=== PATIENT | male | born 1965 ===

== ENCOUNTER 2017-11-16 11:05 | Observation (INO) | payer MEDICAID ==
--- NOTE | 2017-11-16 11:41 | ED PDOC ---
Arrival/HPI - General Chief Complaint: GI Problem Time Seen by Provider: 11/16/17 11:24 Historian: Patient - History of Present Illness Narrative History of Present Illness (Text): you were treated in the ED today for history of obesity, hypertension, cholesterol, peptic ulcer disease, gallbladder surgery, umbilical surgery and now sent by Dr. Christianson due to your having intermittent bleeding per rectum for about 2 weeks but otherwise without any nausea/vomiting/headache/dizziness/ difficulty breathing/chest pain/abdomen pain/numbness/tingling/loss of limb function/pain with urination. no aspirin use or blood thinnking use. 11/16/17 11:38 Time/Duration: Other (2 weeks) Symptom Onset: Gradual Symptom Course: Intermittent Quality: Other (no pain) Activities at Onset: Rest Context: Sitting Past Medical History - Provider Review Nursing Documentation Reviewed: Yes - Travel History Have you recently traveled outside [place] w/in the past 3 mons?: No - Infectious Disease Hx of Infectious Diseases: None - Tetanus Immunization Tetanus Immunization: Unknown - Cardiac Hx Cardiac Disorders: Yes Hx Hypertension: Yes Hx Pacemaker: No - Pulmonary Hx Respiratory Disorders: No - Neurological Hx Neurological Disorder: No Hx Paralysis: No - HEENT Hx HEENT Disorder: No - Renal Hx Renal Disorder: No - Endocrine/Metabolic Hx Endocrine Disorders: No - Hematological/Oncological Hx Blood Disorders: Yes Hx Anemia: Yes (With blood transfusion) - Integumentary Hx Dermatological Disorder: No - Musculoskeletal/Rheumatological Hx Musculoskeletal Disorders: Yes Hx Arthritis: Yes Other/Comment: R KNEE SX - Gastrointestinal Hx Gastrointestinal Disorders: Yes Hx Gall Bladder Disease: Yes Hx Gastrointestinal Ulcer: Yes - Genitourinary/Gynecological Hx Genitourinary Disorders: No - Psychiatric Hx Psychophysiologic Disorder: No Hx Emotional Abuse: No Hx Physical Abuse: No Hx Substance Use: No - Surgical History Hx Cholecystectomy: Yes Hx Orthopedic Surgery: Yes (R KNEE) Other/Comment: COLONOSCOPY, ENDOSCOPY - Anesthesia Hx Anesthesia: Yes Hx Anesthesia Reactions: No Hx Malignant Hyperthermia: No - Suicidal Assessment Feels Threatened In Home Enviroment: No Family/Social History - Physician Review Nursing Documentation Reviewed: Yes Family/Social History: No Known Family HX Smoking Status: Former Smoker Hx Alcohol Use: No Frequency of alcohol use: Socially Hx Substance Use: No Allergies/Home Meds Allergies/Adverse Reactions: Allergies No Known Allergies Allergy (Verified 02/27/18 11:11) Home Medications: Home Meds Medication Instructions Recorded Confirmed Omeprazole [Omeprazole] 20 mg PO DAILY 11/16/17 11/16/17 Tamsulosin [Flomax] 1 cap PO DAILY 11/16/17 11/16/17 Review of Systems - Review of Systems Constitutional: Normal Eyes: Normal ENT: Normal Respiratory: Normal Cardiovascular: Normal Gastrointestinal: Hematochezia Genitourinary Male: Normal Musculoskeletal: Normal Skin: Normal Neurological: Normal Endocrine: Normal Hemo/Lymphatic: Normal Psychiatric: Normal Physical Exam Vital Signs Reviewed: Yes Vital Signs Temp Pulse Resp BP Pulse Ox 11/16/17 11:18 98.3 F 64 16 130/70 95 Temperature: Afebrile Blood Pressure: Hypertensive Pulse: Regular Respiratory Rate: Normal Appearance: Positive for: Well-Appearing, Non-Toxic, Comfortable Pain Distress: None Mental Status: Positive for: Alert and Oriented X 3 - Systems Exam Head: Present: Atraumatic, Normocephalic Pupils: Present: PERRL Extroacular Muscles: Present: EOMI Conjunctiva: Present: Normal Ears: Present: Normal Mouth: Present: Moist Mucous Membranes Pharnyx: Present: Normal Nose (External): Present: Atraumatic Nose (Internal): Present: Normal Inspection Neck: Present: Normal Range of Motion Respiratory/Chest: Present: Clear to Auscultation, Good Air Exchange Cardiovascular: Present: Regular Rate and Rhythm Abdomen: No: Tenderness, Distention, Normal Bowel Sounds, Peritoneal Signs, Rebound, Guarding, McBurney's Point Tender, Rovsing's Sign Present, Hernias, Feeding Tubes, Ostomy Tubes, Mass/Organomegaly, Scars, Other Rectal: Present: Occult Blood (positive), Gross Blood, Other (mild gross redness /streaks. no active bleeding.) Upper Extremity: Present: Normal Inspection Lower Extremity: Present: Normal Inspection Neurological: Present: GCS=15, CN II-XII Intact, Speech Normal, Motor Func Grossly Intact Skin: Present: Warm, Normal Color Psychiatric: Present: Alert, Oriented x 3, Normal Insight, Normal Concentration Medical Decision Making ED Course and Treatment: you were treated in the ED today for history of obesity, hypertension, cholesterol, peptic ulcer disease, gallbladder surgery, umbilical surgery and now sent by Dr. Christianson due to your having intermittent bleeding per rectum for about 2 weeks but otherwise without any nausea/vomiting/headache/dizziness/ difficulty breathing/chest pain/abdomen pain/numbness/tingling/loss of limb function/pain with urination. no aspirin use or blood thinnking use. You were otherwise breathing easily, pink moist lips, smiling and talking easily, good strength/sensation, alert/oriented, walking easily, clear lungs, no abdomen tenderness, mild streaks of blood per rectum but no active bleeding, no fever temp 98.3, stable heart rate 64, stable breathing rate 16, excellent oxygen level 95% room air, elevated blood pressure 130/70 which we recommend repeat in 2-3 days primary care office to determine further treatment, you have blood tests no infection count 6.9, stable blood level hemoglobin 11.3 from 10 () /platelets 272, stable chemistry, heart blood test negative, ECG normal sinus rhythma, protonix, observation done in the ED with stability, d/w Dr. Christianson who stated to admit to med-surg, [facility] colonoscopy prep, clears diet, consult Dr. Lee as pt to be on schedule for colonoscopy tommorrow. 11/16/17 11:41 Reassessment Condition: Re-examined, Improved - Lab Interpretations Lab Results: 11/16/17 12:04 11/16/17 12:04 Lab Results 11/16/17 12:04: Sodium 142, Potassium 4.2, Chloride 101, Carbon Dioxide 32, Anion Gap 14, BUN 16, Creatinine 0.8, Est GFR ( Amer) > 60, Est GFR (Non- Af Amer) > 60, Random Glucose 106, Calcium 9.4, Total Bilirubin 0.4, AST 31, ALT 31, Alkaline Phosphatase 73, Lactate Dehydrogenase 435, Total Creatine Kinase 123, Troponin I < 0.01, Total Protein 8.2, Albumin 4.1, Globulin 4.0, Albumin/Globulin Ratio 1.0 L 11/16/17 12:04: PT 11.8, INR 1.03, APTT 30.1 11/16/17 12:04: WBC 6.9, RBC 4.59, Hgb 11.3 L, Hct 36.6 L, MCV 79.7 L, MCH 24.6 L, MCHC 30.9 L, RDW 19.7 H, Plt Count 272, MPV 10.0, Gran % 67.0, Lymph % (Auto ) 22.9, [place] % (Auto) 6.3 H, Eos % (Auto) 3.2, Baso % (Auto) 0.6, Gran # 4.59, Lymph # (Auto) 1.6, [place] # (Auto) 0.4, Eos # (Auto) 0.2, Baso # (Auto) 0.04 I have reviewed the lab results: Yes - EKG Interpretation Interpreted by ED Physician: Yes (NSR, flipped t waves avr) Type: 12 lead EKG Comparison: Similar to previous EKG (07/12/16) - Medication Orders Current Medication Orders: Discontinued Medications Pantoprazole Sodium (Protonix Inj) 80 mg IVP STAT STA Stop: 11/16/17 11:36 Last Admin: 11/16/17 12:26 Dose: 80 mg IVP Administration Document 11/16/17 12:26 OCS (Rec: 11/16/17 12:26 OCS [id number]) Charges for Administration # of IVP Administrations 1 Disposition/Present on Arrival - Present on Arrival Any Indicators Present on Arrival: No History of DVT/PE: No History of Uncontrolled Diabetes: No Urinary Catheter: No History of Decub. Ulcer: No History Surgical Site Infection Following: None - Disposition Have Diagnosis and Disposition been Completed?: Yes Diagnosis: PUD (peptic ulcer disease), GIB (gastrointestinal bleeding) Disposition Time: 13:17 Patient Plan: Admission Condition: STABLE Forms: [employer] (Greek)
[2017-11-16 12:24] LABS: BASO # 0.04 K/mm3 (0.0-2.0); BASO % 0.6 % (0.0-3.0); EOS # 0.2 (0.0-0.7); EOS % 3.2 % (1.5-5.0); GRAN # 4.59 (1.4-6.5); HEMOGLOBIN 11.3 g/dL (14.0-18.0); LYMPH # 1.6 (1.2-3.4); LYMPH % 22.9 % (22.0-35.0); MEAN CELL VOLUME 79.7 fl (80.0-105.0); MEAN CORPUSCULAR HEMOGLOBIN 24.6 pg (25.0-35.0); MEAN CORPUSCULAR HGB CONC 30.9 g/dl (31.0-37.0); MONO # 0.4 (0.1-0.6); MONO % 6.3 % (1.0-6.0); RBC 4.59 10^6/uL (3.5-6.1); RED CELL DISTRIBUTION WIDTH 19.7 % (11.5-14.5); WHITE BLOOD COUNT 6.9 10^3/ul (4.5-11.0)
[2017-11-16 12:37] LABS: ALBUMIN 4.1 g/dL (3.0-4.8); ALT/SGPT 31 U/L (7-56); AST/SGOT 31 U/L (17-59); BLOOD UREA NITROGEN 16 mg/dL (7-21); CALCIUM 9.4 mg/dL (8.4-10.5); GFR AFRICAN-AMERICAN > 60; GFR NON-AFRICAN AMERICAN > 60
[2017-11-16 12:38] LABS: INR 1.03 (0.93-1.08); PARTIAL THROMBOPLASTIN TIME 30.1 Seconds (25.1-36.5); PROTHROMBIN TIME 11.8 SECONDS (9.4-12.5)
[2017-11-16 12:45] LABS: TROPONIN I < 0.01 ng/mL
[2017-11-16] MEDS ORDERED: Peg-Electrolyte Oral Soln 4L (Golytely) PO ONE (13:19)
[2017-11-16 16:42] VITALS: BMI 50.9
[2017-11-16] MEDS ORDERED: Pneumococcal 23-Valent Vaccine IM ONE (16:42)
[2017-11-16] MEDS ORDERED: Influenza Vaccine 60 mcg/0.5 mL SYR (4YR UP) IM ONE (16:42)
[2017-11-16] MEDS: Pantoprazole 40 mg EC Tab PO SCH (16:57)
[2017-11-17] MEDS ORDERED: Sodium Chloride 0.9% 1,000 ML IV ONE (01:00)
[2017-11-17] MEDS ORDERED: Magnesium Citrate Oral SOL (300 ml) PO ONE (06:00)
[2017-11-17] MEDS ORDERED: Bisacodyl 5mg EC Tab PO ONE (06:00)
--- NOTE | 2017-11-17 08:48 | CARD ---
APPROVED REPORT EKG Measurement Heart [id number] <Conclusion> Normal sinus rhythm Normal ECG
[2017-11-17] MEDS: Pantoprazole 40 mg EC Tab PO SCH (10:43)
--- NOTE | 2017-11-17 11:37 | CON ---
DATE:11/16/2017 REASON FOR CONSULTATION: Bleeding per rectum, anemia. HISTORY OF PRESENT ILLNESS: This is a 52-year-old patient with past medical history of hypertension, dyslipidemia, and peptic ulcer disease, status post cholecystectomy, has been noted to have episodes of bleeding per rectum for several weeks on and off. Patient had a history of colonoscopy and endoscopy done nearly two years ago by Dr. Rincon. Upper GI endoscopy done showed esophagitis and healed gastric ulcer. This was done on 02/14/2016. Patient had a colonoscopy done more than 2 years ago. It showed only internal hemorrhoids, otherwise unremarkable. Patient is very concerned because of the episodes of bleeding per rectum and anemia. PAST MEDICAL HISTORY: Other past medical history as above and history of status post umbilical hernia surgery done, sp cholecystectomy, hypertension, dyslipidemia, history of peptic ulcer disease. ALLERGIES: NO KNOWN DRUG ALLERGIES. SOCIAL HISTORY: He denies smoking. Alcohol occasionally. REVIEW OF SYSTEMS: Positive as above. Other systems reviewed are negative. PHYSICAL EXAMINATION VITAL SIGNS: Temperature 98.3, pulse 65, blood pressure 114/64, O2 saturation 95. HEENT: Atraumatic, anicteric. NECK: Supple. HEART: S1 and S2 heard. LUNGS: Bilateral air entry present. ABDOMEN: Soft. There is no mass palpable, no tenderness. EXTREMITIES: No edema. No cyanosis. NEUROLOGICAL: Alert, oriented. Moves all extremities. RECTAL: Examination was deferred. Patient had it done in the ER. LABORATORY DATA: Hemoglobin 11.3, hematocrit 36.6, WBC 6.9, platelets 272,000. Chemistry is essentially unremarkable. ASSESSMENT and PLAN: The concern is significant anemia with bleeding per rectum. The differential diagnosis should include hemorrhoids, diverticulosis, arteriovenous malformations, colonic polyps. Even upper gastrointestinal source also to be included in the differential diagnosis. Patient would benefit from the esophagogastroduodenoscopy and colonoscopy to further evaluate. He will be scheduled for the procedure tomorrow. Thank you very much for allowing me to participate in the care of the patient. Coreen Lee MD PATRICE
[2017-11-17] MEDS ORDERED: diltiaZEM IVPB 100mg in NS 100 ML IV PRN (15:50)
[2017-11-17] MEDS ORDERED: diltiaZEM IVPB 100mg in NS 100 ML ONE (15:50)
--- NOTE | 2017-11-17 20:40 | CP.PCM.HP ---
History of Present Illness - History of Present Illness History of Present Illness: Pt. is a 52 year old male with history of bright red blood per rectum for past few days. No abdominal pain. he has history of severe iron deficiency anemia. He is getting IV iron in office. He is morbidly obese. BP controlled with current meds. No SOB. Present on Admission - Present on Admission Any Indicators Present on Admission: No Review of Systems - Constitutional Constitutional: As Per HPI - EENT Eyes: absent: As Per HPI, Blind Spots, Blurred Vision, Change in Vision, Decreased Night Vision, Diplopia, Discharge, Dry Eye, Exophthalmos, Floaters, Irritation, Itchy Eyes, Loss of Peripheral Vision, Pain, Photophobia, Requires Corrective Lenses, Sees Flashes, Spots in Vision, Tunnel Vision, Other Visual Disturbances, Loss of Vision, Other Ears: absent: As Per HPI, Decreased Hearing, Ear Discharge, Ear Pain, Tinnitus, Abnormal Hearing, Disequilibrium, Dizziness, Other Nose/Mouth/Throat: absent: As Per HPI, Epistaxis, Nasal Congestion, Nasal Discharge, Nasal Obstruction, Nasal Trauma, Nose Pain, Post Nasal Drip, Sinus Pain, Sinus Pressure, Bleeding Gums, Change in Voice, Dental Pain, Dry Mouth, Dysphagia, Halitosis, Hoarsness, Lip Swelling, Mouth Lesions, Mouth Pain, Odynophagia, Sore Throat, Throat Swelling, Tongue Swelling, Facial Pain, Neck Pain, Neck Mass, Other - Cardiovascular Cardiovascular: absent: As Per HPI, Acrocyanosis, Chest Pain, Chest Pain at Rest , Chest Pain with Activity, Claudication, Diaphoresis, Dyspnea, Dyspnea on Exertion, Edema, Irregular Heart Rhythm, Pain Radiating to Arm/Neck/Jaw, Leg Edema, Leg Ulcers, Lightheadedness, Orthopnea, Palpitations, Paroxysmal Nocturnal Dyspnea, Pedal Edema, Radiating Pain, Rapid Heart Rate, Slow Heart Rate, Syncope, Other - Respiratory Respiratory: absent: As Per HPI, Cough, Dyspnea, Hemoptysis, Dyspnea on Exertion , Wheezing, Snoring, Stridor, Pain on Inspiration, Chest Congestion, Excessive Mucous Production, Change in Mucous Color, Pain with Coughing, Other - Gastrointestinal Gastrointestinal: As Per HPI - Genitourinary Genitourinary: As Per HPI - Musculoskeletal Musculoskeletal: absent: As Per HPI, Abnormal Gait, Arthralgias, Atrophy, Back Pain, Deformity, Joint Swelling, Limited Range of Motion, Loss of Height, Muscle Cramps, Muscle Weakness, Myalgias, Neck Pain, Numbness, Radiating Pain into Limb, Stiffness, Tingling, Other - Integumentary Integumentary: absent: As Per HPI, Acne, Alopecia, Bleeding Lesions, Change in Hair, Change in Nails, Change in Pigmentation, Changing Lesions, Dry Skin, Erythema, Furuncle, Hirsutism, Lesions, New Lesions, Non-Healing Lesions, Photosensitivity, Pruritus, Rash, Skin Pain, Skin Ulcer, Sores, Striae, Swelling , Unusual Bruising, Wounds, Jaundice, Other - Neurological Neurological: absent: As Per HPI, Abnormal Gait, Abnormal Hearing, Abnormal Movements, Abnormal Speech, Behavioral Changes, Burning Sensations, Confusion, Convulsions, Disequilibrium, Dizziness, Numbness, Focal Weakness, Frequent Falls , Headaches, Lack of Coordination, Loss of Vision, Memory Loss, Paresthesias, Radicular Pain, Restless Legs, Sensory Deficit, Syncope, Tingling, Tremor, Vertigo, Weakness, Other Visual Disturbances, Other - Psychiatric Psychiatric: absent: As Per HPI, Abnormal Sleep Pattern, Anhedonia, Anxiety, Auditory Hallucinations, Behavioral Changes, Change in Appetite, Change in Libido, Confusion, Depression, Difficulty Concentrating, Hallucinations, Homicidal Ideation, Hopelessness, Irritability, Memory Loss, Mood Swings, Panic Attacks, Paranoia, Suicidal Ideation, Visual Hallucinations, Tactile Hallucinations, Other - Endocrine Endocrine: absent: As Per HPI, Change in Body Appearance, Change in Libido, Cold Intolorance, Deepening of Voice, Excessive Sweating, Fatigue, Flushing, Heat Intolorance, Increase in Ring/Shoe/Hat Size, Palpitations, Polydipsia, Polyphagia, Polyuria, Other - Hematologic/Lymphatic Hematologic: As Per HPI Past Patient History - Infectious Disease Hx of Infectious Diseases: None - Tetanus Immunizations Tetanus Immunization: Unknown - Past Medical History & Family History Past Medical History?: Yes - Past Social History Smoking Status: Former Smoker - CARDIAC Hx Cardiac Disorders: Yes Hx Hypertension: Yes Hx Pacemaker: No - PULMONARY Hx Respiratory Disorders: Yes (USED TO SMOKE 1 CIGARETTE A DAY-QUIT) - NEUROLOGICAL Hx Neurological Disorder: No - HEENT Hx HEENT Problems: No - RENAL Hx Chronic Kidney Disease: No - ENDOCRINE/METABOLIC Hx Endocrine Disorders: No - HEMATOLOGICAL/ONCOLOGICAL Hx Blood Disorders: Yes Hx Anemia: Yes (With blood transfusion) - INTEGUMENTARY Hx Dermatological Problems: Yes Other/Comment: MULTIPLE TATTOOS ALL OVER. - MUSCULOSKELETAL/RHEUMATOLOGICAL Hx Musculoskeletal Disorders: Yes Hx Arthritis: Yes Hx Falls: Yes Hx Unsteady Gait: Yes (CANE) Other/Comment: R KNEE SX - GASTROINTESTINAL Hx Gastrointestinal Disorders: Yes (HEMORRHOIDS,GI BLEED,COLONOSCOPY,ENDOSCOPY) Hx Gall Bladder Disease: Yes Hx Ulcer: Yes - GENITOURINARY/GYNECOLOGICAL Hx Genitourinary Disorders: No - PSYCHIATRIC Hx Psychophysiologic Disorder: No Hx Emotional Abuse: No Hx Physical Abuse: No Hx Substance Use: No - SURGICAL HISTORY Hx Surgeries: Yes Hx Cholecystectomy: Yes Hx Orthopedic Surgery: Yes (R KNEE) Other/Comment: COLONOSCOPY, ENDOSCOPY - ANESTHESIA Hx Anesthesia: Yes Hx Anesthesia Reactions: No Hx Malignant Hyperthermia: No Meds Allergies/Adverse Reactions: Allergies Allergy/AdvReac Type Severity Reaction Status Date / Time No Known Allergies Allergy Verified 11/16/17 13:44 Results - Vital Signs Recent Vital Signs: Last Vital Signs Temp 98.6 F 11/17/17 17:00 Pulse 69 11/17/17 17:00 Resp 16 11/17/17 17:00 BP 116/68 11/17/17 17:00 Pulse Ox 97 11/17/17 17:00 - Labs Result Diagrams: 11/16/17 12:04 11/16/17 12:04 Assessment & Plan - Assessment and Plan (Free Text) Assessment: 1, Severe iron deficiency anemia . On IV iron out patient. Hb/Hct stable. 2.GI bleed . ongoing for past few days. GI consult Dr. Lee requested. EGD, colonoscopy planned for tomorrow. 3. NPO past midnight. IVF - NS at 80 cc/hr. 4. protonix 40 mg IV daily. 5. Renal : BUN, creatinine normal. - Date & Time Date: 11/16/17 Time: 17:00
[2017-11-18 06:20] LABS: BASO # 0.05 K/mm3 (0.0-2.0); BASO % 0.8 % (0.0-3.0); EOS # 0.2 (0.0-0.7); EOS % 3.6 % (1.5-5.0); GRAN # 4.29 (1.4-6.5); GRAN % 64.9 % (50.0-68.0); HEMOGLOBIN 11.3 g/dL (14.0-18.0); LYMPH # 1.5 (1.2-3.4); LYMPH % 22.8 % (22.0-35.0); MEAN CELL VOLUME 80.5 fl (80.0-105.0); MEAN CORPUSCULAR HEMOGLOBIN 24.7 pg (25.0-35.0); MEAN CORPUSCULAR HGB CONC 30.7 g/dl (31.0-37.0); MEAN PLATELET VOLUME 9.7 fl (7.0-11.0); MONO # 0.5 (0.1-0.6); MONO % 7.9 % (1.0-6.0); RBC 4.57 10^6/uL (3.5-6.1); RED CELL DISTRIBUTION WIDTH 20.1 % (11.5-14.5); WHITE BLOOD COUNT 6.6 10^3/ul (4.5-11.0)
--- NOTE | 2017-11-18 06:59 | CP.PCM.PN ---
Subjective - Date & Time of Evaluation Date of Evaluation: 11/18/17 Time of Evaluation: 06:58 - Subjective Subjective: Seen at bedside. Asymptomatic. Has bradycardia.Heart rate 40-47 per min,BP 92/54. Medical record was reviewed. He is on cardizem.Cardizem held. This 52 year old male had colonoscopy was done for history of rectal bleeding. During colonoscopy ,he had paroxysmal atrial fibrillation. Objective - Vital Signs/Intake and Output Vital Signs (last 24 hours): Temp Pulse Resp BP Pulse Ox 97.6 F 52 L 18 92/36 L 99 11/18/17 06:00 11/18/17 06:24 11/18/17 06:00 11/18/17 06:24 11/18/17 06:00 Intake and Output: 11/17/17 11/18/17 18:59 06:59 Intake Total 0 400 Balance 0 400 - Medications Medications: Current Medications Amlodipine Besylate (Norvasc) 10 mg PO DAILY [facility] Last Admin: 11/17/17 10:43 Dose: Not Given Diltiazem HCl (Cardizem) 30 mg PO Q6 [facility] Last Admin: 11/18/17 06:24 Dose: Not Given Pantoprazole Sodium (Protonix Ec Tab) 40 mg PO DAILY [facility] Last Admin: 11/17/17 10:43 Dose: Not Given Tamsulosin HCl (Flomax) 0.4 mg PO DAILY [facility] Last Admin: 11/17/17 10:43 Dose: Not Given - Labs Labs: 11/18/17 05:30 PT 11.8 SECONDS (9.4-12.5) 11/16/17 12:04 INR 1.03 (0.93-1.08) 11/16/17 12:04 APTT 30.1 Seconds (25.1-36.5) 11/16/17 12:04 - Constitutional Appears: Well, No Acute Distress - Head Exam Head Exam: ATRAUMATIC, NORMAL INSPECTION, NORMOCEPHALIC - Eye Exam Eye Exam: Normal appearance - ENT Exam ENT Exam: Normal External Ear Exam - Neck Exam Neck Exam: Normal Inspection - Respiratory Exam Respiratory Exam: NORMAL BREATHING PATTERN - Cardiovascular Exam Cardiovascular Exam: absent: JVD - GI/Abdominal Exam GI & Abdominal Exam: absent: Distended - Rectal Exam Rectal Exam: Deferred - Exam Additional comments: Deferred. - Extremities Exam Extremities Exam: Normal Inspection - Back Exam Back Exam: NORMAL INSPECTION - Neurological Exam Neurological Exam: Alert - Psychiatric Exam Psychiatric exam: Normal Affect, Normal Mood - Skin Skin Exam: Normal Color Assessment and Plan - Assessment and Plan (Free Text) Assessment: Sinus bradycardia. Hypotension. Atrial fibrillation. Rectal bleeding. S/P colonoscopy. Borderline anemia. Plan: Hold cardizem. Normal saline bolus as ordered. Continue present management.
[2017-11-18 07:09] LABS: BLOOD UREA NITROGEN 10 mg/dL (7-21); CALCIUM 9.1 mg/dL (8.4-10.5); GFR AFRICAN-AMERICAN > 60; GFR NON-AFRICAN AMERICAN > 60; MAGNESIUM 2.1 mg/dL (1.7-2.2)
[2017-11-18] MEDS: Pantoprazole 40 mg EC Tab PO SCH (09:26)
[2017-11-18] MEDS ORDERED: Propofol 10 mg/ml Inj (20 ML) ONE ×3 (10:03→10:27)
--- NOTE | 2017-11-18 10:07 | CON ---
DATE: HISTORY OF PRESENT ILLNESS: This patient was recently scheduled for an EGD and a colonoscopy to further evaluate anemia and recurrent episodes of GI bleeding. In the pre-endoscopy unit, in the endoscopy, he was found to have atrial fibrillation with rapid ventricular response with heart rate of 120, but he was hemodynamically stable with . PHYSICAL EXAMINATION VITAL SIGNS: When he came, the blood pressure was 105/80, respirations 18, O2 saturation is 96%. HEENT: Atraumatic and anicteric. NECK: Supple. HEART: S1, S2 heard. LUNGS: Bilateral air entry present. ABDOMEN: Soft. There is no tenderness. EXTREMITIES: No cyanosis. No clubbing. LABORATORY DATA: Hemoglobin on admission was 11.3. IMPRESSION: This 52-year-old patient with a past medical history of hypertension, peptic ulcer disease, recurrent episodes of rectal bleeding, was admitted for further evaluation. He was found to have atrial fibrillation with rapid ventricular response. The procedure was canceled by the anesthesiologist. PLAN: Would recommend: 1. Transfer the patient to the Telemetry. 2. Optimize the cardiac status before rescheduling the patient for endoscopy and colonoscopy evaluation. Request repeat labs and electrolytes. Thank you very much for allowing us to participate in the care of the patient. Coreen Lee MD
[2017-11-18] MEDS ORDERED: Sodium Chloride 0.9% 1,000 ML IV SCH (10:45)
--- NOTE | 2017-11-18 11:07 | CARD ---
APPROVED REPORT EKG Measurement Heart [id number] <Conclusion> Atrial fibrillation with rapid ventricular response Abnormal ECG
[2017-11-18 12:28] VITALS: BP 125/70
[2017-11-18 13:01] VITALS: RESP 22; TEMP 97.8; O2SAT 96
[2017-11-18 17:11] VITALS: PULSE 56
--- NOTE | 2017-11-18 22:11 | CON ---
DATE: SERVICE: Cardiology. REASON FOR CONSULTATION AND FOLLOWUP: AFib, paroxysmal, during colonoscopy preparation; converted to normal sinus. BRIEF CLINICAL HISTORY: This is a 52-year-old morbidly obese male who came in with a history of bright red blood per rectum. So, patient is scheduled for colonoscopy. While patient was on PACU, went into AFib, so Cardiology consult was called. Patient started IV Cardizem, converted to normal sinus, now patient is on p.o. Cardizem. Heart rate is in 50. Denies any chest pain, shortness of breath, or any palpitation. PAST MEDICAL HISTORY: Significant for GI bleed, morbid obesity, hypertension. CURRENT MEDICATIONS: Patient is taking amlodipine 10 mg daily, Flomax one tablet daily, omeprazole 20 mg daily. SOCIAL HISTORY: Smokes off and on, but not on regular basis. Drinks socially, but on deep further interrogation, claims that he drinks sometimes heavy, 6-can beer. FAMILY HISTORY: Significant for coronary artery disease; father had a stent in the heart. Brother had diabetes. PAST SURGICAL HISTORY: As mentioned, history of right knee. REVIEW OF SYSTEMS: As per HPI. PHYSICAL EXAMINATION: VITAL SIGNS: Temperature afebrile, heart rate 51, blood pressure 116/60. HEENT: PERRLA. Extraocular muscles intact. NECK: Supple. No carotid bruits or thyromegaly. CHEST: Clear to auscultation. HEART: S1, S2 regular. ABDOMEN: Soft. EXTREMITIES: Clubbing and cyanosis negative. LABORATORY DATA: Blood workup as follows: WBC 6.6, hemoglobin 11.6, hematocrit 36.8, platelet count 259. Chemistry shows sodium 141, potassium 4.0; chloride of 103, carbon dioxide of 28, anion gap of 14, BUN 10, creatinine 0.8, calcium 9.1, magnesium 2.1. Troponin 0.01, negative. PREVIOUS CARDIAC WORKUP: As follows: Patient had echocardiography on 02/13/2016 that showed ejection fraction of 55% to 60%, trace mitral regurgitation, mild tricuspid regurgitation, RV systolic pressure of 20, normal-sized LV concentric and [id number] concentric LVH. Patient also has stress test on 06/04/2016, done with normal myocardial perfusion study. Ejection fraction 60%. EKG showed atrial fibrillation with rapid ventricular rate yesterday, now telemetry is in normal sinus. Pre-procedure EKG shows normal sinus, normal EKG. IMPRESSION: Patient had noninvasive cardiac workup including a stress test, 06/02/2016, a normal myocardial perfusion study. Patient had normal echo with mild mitral regurgitation dated 02/13/2016, morbid obesity, hypertension, gastrointestinal bleed, admitted for endoscopy, went into paroxysmal atrial fibrillation, converted to normal sinus with intravenous Cardizem. RECOMMENDATION: Continue Cardizem with holding parameters. Patient is cleared from Cardiology point of view to go for endoscopy, explained to Dr. Guthrie's nurse, Viridiana. The patient is cleared from a Cardiology point of view to go for comorbidity, no absolute contraindication. No evidence of ischemia. No evidence of arrhythmia though patient had AFib converted to normal sinus, no evidence of CHF. We will follow with you. Thank you, Dr. Christianson, for providing us the opportunity in taking care of the patient, Adilson Collins. Micaela Hill MD
--- NOTE | 2017-11-19 09:34 | CARD ---
APPROVED REPORT EKG Measurement Heart [id number] <Conclusion> Sinus bradycardia Otherwise normal ECG
--- NOTE | 2017-11-19 16:16 | CARD ---
APPROVED REPORT EXAM: Two-dimensional and M-mode echocardiogram with Doppler and color Doppler. INDICATION Atrial Fibrillation 2D DIMENSIONS Left Atrium (2D)5.2 (1.6-4.0cm)IVSd1.1 (0.7-1.1cm) LVDd5.7 (3.9-5.9cm)PWd1.2 (0.7-1.1cm) LVDs3.7 (2.5-4.0cm)FS (%) 34.7 % LVEF (%)63.2 (>50%) M-Mode DIMENSIONS Aortic Root3.50 (2.2-3.7cm)Aortic Cusp Exc.2.00 (1.5-2.0cm) Aortic Valve AoV Peak Wnbhtwju584.0cm/Cameron Peak GR.13mmHg Mitral Valve MV E Anzyedjx040.0cm/sMV A Nunzbjxp158.0cm/sE/A ratio1.3 TDI Lateral E' Peak V15.20cm/sMedial E' Peak V12.50cm/sE/Lateral E'8.7 E/Medial E'10.6 Pulmonary Valve PV Peak Nxidjzlq980.0cm/sPV Peak Grad.5mmHg Tricuspid Valve TR Peak Cowjwecj842gt/sRAP UKFHEEBE20gsKbIU Peak Gr.11mmHg [id number] LEFT VENTRICLE The Left Ventricle is borderline dilated. There is borderline concentric left ventricular hypertrophy. The left ventricular function is normal.EF-60-65% There is normal LV segmental wall motion. The left ventricular diastolic function is normal. No left ventricle thrombus noted on this study. There is no ventricular septal defect visualized. There is no left ventricular aneurysm. There is no mass noted in the left ventricle. RIGHT VENTRICLE The right ventricle is normal size. There is normal right ventricular wall thickness. The right ventricular systolic function is normal. ATRIA The left atrium is mildly dilated. The right atrium size is normal. The interatrial septum is intact with no evidence for an atrial septal defect. AORTIC VALVE The aortic valve is thickened but opens well. The aortic valve is mildly to moderately sclerotic. No aortic regurgitation is present. There is no aortic valvular stenosis. There is no aortic valvular vegetation. MITRAL VALVE The mitral valve is thickened but opens well. Mitral regurgitation is trace. There is no mitral valve stenosis. There is no evidence of mitral valve prolapse. TRICUSPID VALVE The tricuspid valve leaflets are thickened , but open well. There is trace tricuspid regurgitation.RVSP-21 mmof Hg There is no tricuspid valve stenosis. There is no tricuspid valve prolapse or vegetation. PULMONIC VALVE The pulmonic valve is borderline thickened. There is trace pulmonic valvular regurgitation. There is no pulmonic valvular stenosis. GREAT VESSELS The aortic root is normal in size. The ascending aorta is normal in size. The pulmonary artery is normal. The IVC is normal in size and collapses >50% with inspiration. PERICARDIAL EFFUSION There is no pleural effusion. There is no pericardial effusion. <Conclusion> The Left Ventricle is borderline dilated. There is borderline concentric left ventricular hypertrophy. The left ventricular function is normal.EF-60-65% Mitral regurgitation is trace. There is trace tricuspid regurgitation.RVSP-21 mmof Hg
== END 2017-11-18 19:52 | disposition home or self-care (01) ==
LOC: ED 11:05 → ERH 13:18 → INTOOBSV 13:18 → ERH 14:09 → 5RNO 15:35 → 2RNO 11-17 17:49 → 3RSO 11-18 11:39
PROVIDERS: ADMIT Internal Medicine Medical Oncology; ATTEND Internal Medicine Medical Oncology
DX: K92.2 Gastrointestinal hemorrhage, unspecified (principal); E66.01 Morbid (severe) obesity due to excess calories; Z68.43 Body mass index [BMI] 50.0-59.9, adult; I10 Essential (primary) hypertension; D50.9 Iron deficiency anemia, unspecified; K27.9 Peptic ulcer, site unspecified, unspecified as acute or chronic, without hemorrhage or perforation; E78.5 Hyperlipidemia, unspecified; I97.89 Other postprocedural complications and disorders of the circulatory system, not elsewhere classified; I48.0 Paroxysmal atrial fibrillation; R00.1 Bradycardia, unspecified; K64.1 Second degree hemorrhoids; K29.50 Unspecified chronic gastritis without bleeding; K63.89 Other specified diseases of intestine; Y84.8 Other medical procedures as the cause of abnormal reaction of the patient, or of later complication, without mention of misadventure at the time of the procedure; Z53.09 Procedure and treatment not carried out because of other contraindication; Z90.49 Acquired absence of other specified parts of digestive tract; Z87.891 Personal history of nicotine dependence
CPT/HCPCS: 36415; 43239; 45378; 80048; 80053; 82550; 83615; 83735; 84484; 85025; 85610; 85730; 86850; 86900; 88305; 88342; 93005; 93306; 96374; 97161; 97530; 99284; C9113; G0378; G8978; G8980; J2001; J2704; J3010; J7040

== ENCOUNTER 2017-11-25 20:05 | Emergency (ER) | payer MEDICAID ==
[2017-11-25 20:21] VITALS: BP 154/79; PULSE 65; RESP 16; TEMP 98.5; O2SAT 98; BMI 55.5
--- NOTE | 2017-11-25 20:32 | ED PDOC ---
Arrival/HPI - General Historian: Patient - History of Present Illness Time/Duration: Other (see hpi) Context: Home <Tati Spain - Last Filed: 11/25/17 21:07> <Koko Ashby - Last Filed: 11/25/17 21:26> - General Chief Complaint: ENT Problem Time Seen by Provider: 11/25/17 20:07 - History of Present Illness Narrative History of Present Illness (Text): 11/25/17 20:27 This 52 yo male presents to this ED c/o right ear pain x 3 days. Patient also noted decreased hearing from right ear. Patient saw Dr. Chet mckay 1 day ago, who prescribed him Ofloxacin Otic, and Motrin with minimum relief of symptoms. Patient admits using Q-tips daily (Tati Spain) Past Medical History - Provider Review Nursing Documentation Reviewed: Yes - Infectious Disease Hx of Infectious Diseases: None - Tetanus Immunization Tetanus Immunization: Unknown - Cardiac Hx Cardiac Disorders: Yes Hx Hypertension: Yes - Pulmonary Hx Respiratory Disorders: Yes (USED TO SMOKE 1 CIGARETTE A DAY-QUIT) - Neurological Hx Neurological Disorder: No - HEENT Hx HEENT Disorder: No - Renal Hx Renal Disorder: No - Endocrine/Metabolic Hx Endocrine Disorders: No - Hematological/Oncological Hx Blood Disorders: Yes Hx Blood Transfusions: Yes - Integumentary Hx Dermatological Disorder: Yes Other/Comment: MULTIPLE TATTOOS ALL OVER. - Musculoskeletal/Rheumatological Hx Musculoskeletal Disorders: Yes Hx Arthritis: Yes Hx Falls: Yes Hx Unsteady Gait: Yes (CANE) Other/Comment: R KNEE SX - Gastrointestinal Hx Gastrointestinal Disorders: Yes (HEMORRHOIDS,GI BLEED,COLONOSCOPY,ENDOSCOPY) Hx Gall Bladder Disease: Yes - Genitourinary/Gynecological Hx Genitourinary Disorders: No - Psychiatric Hx Psychophysiologic Disorder: No Hx Substance Use: No - Surgical History Hx Cholecystectomy: Yes Hx Orthopedic Surgery: Yes (R KNEE) Other/Comment: COLONOSCOPY, ENDOSCOPY - Anesthesia Hx Anesthesia Reactions: No Hx Malignant Hyperthermia: No - Suicidal Assessment Feels Threatened In Home Enviroment: No <Tati Sapin - Last Filed: 11/25/17 21:07> Family/Social History - Physician Review Nursing Documentation Reviewed: Yes Family/Social History: Other (noncontributory) Smoking Status: Former Smoker Hx Alcohol Use: Yes (SOCIAL BEER LAST DRANK WEDNESDAY) Hx Substance Use: No <Tati Spain - Last Filed: 11/25/17 21:07> Allergies/Home Meds <Tati Spain - Last Filed: 11/25/17 21:07> <Koko Ashby - Last Filed: 11/25/17 21:26> Allergies/Adverse Reactions: Allergies No Known Allergies Allergy (Verified 11/16/17 13:44) Home Medications: Home Meds Medication Instructions Recorded Confirmed Omeprazole [Omeprazole] 20 mg PO DAILY 11/16/17 11/16/17 Tamsulosin [Flomax] 1 cap PO DAILY 11/16/17 11/16/17 Review of Systems - Review of Systems Constitutional: Normal. absent: Fatigue, Weight Change, Fevers, Night Sweats Eyes: Normal ENT: Other (right ear pain). absent: Sore Throat, Rhinorrhea Respiratory: Normal Cardiovascular: Normal Gastrointestinal: Normal Genitourinary Male: Normal Musculoskeletal: Normal Skin: Normal Neurological: Normal Endocrine: Normal Hemo/Lymphatic: Normal Psychiatric: Normal <Tati Spain - Last Filed: 11/25/17 21:07> Physical Exam Temperature: Afebrile Blood Pressure: Normal Pulse: Regular Respiratory Rate: Normal Appearance: Positive for: Well-Appearing, Non-Toxic, Comfortable Pain Distress: None Mental Status: Positive for: Alert and Oriented X 3 - Systems Exam Head: Present: Atraumatic, Normocephalic Pupils: Present: PERRL Extroacular Muscles: Present: EOMI Conjunctiva: Present: Normal Ears: Present: Normal Canal, Other ((+) right cerumen impaction). No: Erythema Mouth: Present: Moist Mucous Membranes, Normal Lips, Normal Tounge, Normal Teeth. No: Drooling Pharnyx: Present: Normal. No: ERYTHEMA, EXUDATE, TONSILS ENLARGED Nose (External): Present: Atraumatic Nose (Internal): Present: Normal Inspection. No: Rhinorrhea Neck: Present: Normal Range of Motion, Trachea Midline. No: Meningeal Signs, MIDLINE TENDERNESS, Paraspinal Tenderness Respiratory/Chest: Present: Clear to Auscultation, Good Air Exchange. No: Respiratory Distress, Accessory Muscle Use, Wheezes Upper Extremity: Present: Normal Inspection, Normal ROM Lower Extremity: Present: Normal Inspection, Normal ROM Neurological: Present: GCS=15, CN II-XII Intact, Speech Normal Skin: Present: Warm, Dry, Normal Color. No: Rashes Psychiatric: Present: Alert, Oriented x 3, Normal Insight, Normal Concentration <Tati Spain - Last Filed: 11/25/17 21:07> Vital Signs Temp Pulse Resp BP Pulse Ox 11/25/17 20:20 98.5 F 65 16 154/79 H 98 Medical Decision Making Re-evaluation Time: 21:07 Reassessment Condition: Re-examined, Improved <Tati Spain - Last Filed: 11/25/17 21:07> <Koko Ashby - Last Filed: 11/25/17 21:26> ED Course and Treatment: 11/25/17 21:07 Re-evaluation. Patient feels better. Discussed results and plan with patient who expresses understanding. All questions answered and there is agreement with the plan to discharge home with instructions. Patient stable for discharge. Return if symptoms persist or worsen. (Tati Spain) - Medication Orders Current Medication Orders: Discontinued Medications Amoxicillin (Amoxil 500 Mg Cap) 500 mg PO STAT STA PRN Reason: Protocol Stop: 11/25/17 21:06 Ketorolac Tromethamine (Toradol) 60 mg IM STAT STA Stop: 11/25/17 21:07 Oxycodone/Acetaminophen (Percocet 5/325 Mg Tab) 1 tab PO STAT STA Stop: 11/25/17 21:06 - PA / IP COUNSEL / Resident Statement MD/DO has reviewed & agrees with the documentation as recorded. <Koko Ashby - Last Filed: 11/25/17 21:26> Disposition/Present on Arrival - Present on Arrival Any Indicators Present on Arrival: No History of DVT/PE: No History of Uncontrolled Diabetes: No Urinary Catheter: No History of Decub. Ulcer: No History Surgical Site Infection Following: None - Disposition Have Diagnosis and Disposition been Completed?: Yes Disposition Time: 21:08 Patient Plan: Discharge <Tati Spain - Last Filed: 11/25/17 21:07> <Koko Ashby - Last Filed: 11/25/17 21:26> - Disposition Diagnosis: Otitis externa, Otitis media Disposition: HOME/ ROUTINE Condition: GOOD Discharge Instructions (ExitCare): Ear Infections (Otitis Media), Outer Ear Infection Additional Instructions: Call ear nose and throat doctor office in 1-2 days for follow up . Take medication as instructed with food. Return to emergency if pain worsen. Prescriptions: Amoxicillin [Amoxil 500 mg Cap] 500 mg PO TID #30 cap oxyCODONE/Acetaminophen [Percocet 5/325 mg Tab] 1 ea PO Q4H PRN #5 tab PRN Reason: Pain, Severe (8-10) Referrals: Giorgi Rosenberg APN [Primary Care Provider] - Follow up with primary Mejia Varma DO [Staff Provider] - Follow up with primary Forms: [facility] (Faroese), WORK NOTE
[2017-11-25] MEDS ORDERED: Oxycodone/Acetaminophen 5/325 mg Tab PO STA (21:05)
== END 2017-11-25 21:51 | disposition home or self-care (01) ==
LOC: ED 20:05
DX: H60.91 Unspecified otitis externa, right ear (principal); H66.91 Otitis media, unspecified, right ear; Z87.891 Personal history of nicotine dependence
CPT/HCPCS: 96372; 99283; J1885

== ENCOUNTER 2018-08-02 14:24 | Inpatient (IN) | payer MEDICAID ==
[2018-08-02 15:02] VITALS: BMI 57.6
--- NOTE | 2018-08-02 15:08 | ED PDOC ---
Arrival/HPI - General Chief Complaint: Shortness Of Breath Time Seen by Provider: 08/02/18 14:38 - History of Present Illness Narrative History of Present Illness (Text): 53 y/o M w/ h/o atrial fibrillation(on Cardizem) presenting to the Emergency Room with complaint of palpitations that began today. The patient states he had felt unwell with chest tightness and dyspnea on exertion for the last couple of days, but felt dyspneic at rest today with associated palpitations. The patient denies fevers, chills, nausea, emesis, abdominal pain, but reports intermittent dizziness and presyncopal episodes. PCP: Dr. Rosenberg Time/Duration: Prior to Arrival Symptom Onset: Sudden Quality: Tightness Activities at Onset: Rest Context: Home Past Medical History - Provider Review Nursing Documentation Reviewed: Yes - Travel History Have you recently traveled outside [place] w/in the past 3 mons?: No - Infectious Disease Hx of Infectious Diseases: None - Tetanus Immunization Tetanus Immunization: Unknown - Cardiac Hx Cardiac Disorders: Yes Hx Hypertension: Yes - Pulmonary Hx Respiratory Disorders: Yes (USED TO SMOKE 1 CIGARETTE A DAY-QUIT) - Neurological Hx Neurological Disorder: No - HEENT Hx HEENT Disorder: No - Renal Hx Renal Disorder: No - Endocrine/Metabolic Hx Endocrine Disorders: No - Hematological/Oncological Hx Blood Disorders: Yes Hx Blood Transfusions: Yes - Integumentary Hx Dermatological Disorder: Yes Other/Comment: MULTIPLE TATTOOS ALL OVER. - Musculoskeletal/Rheumatological Hx Musculoskeletal Disorders: Yes Hx Arthritis: Yes Hx Falls: Yes Hx Unsteady Gait: Yes (CANE) Other/Comment: R KNEE SX - Gastrointestinal Hx Gastrointestinal Disorders: Yes (HEMORRHOIDS,GI BLEED,COLONOSCOPY,ENDOSCOPY) Hx Gall Bladder Disease: Yes - Genitourinary/Gynecological Hx Genitourinary Disorders: No - Psychiatric Hx Psychophysiologic Disorder: No Hx Substance Use: No - Surgical History Hx Cholecystectomy: Yes Hx Orthopedic Surgery: Yes (R KNEE) Other/Comment: COLONOSCOPY, ENDOSCOPY - Anesthesia Hx Anesthesia: Yes Hx Anesthesia Reactions: No Hx Malignant Hyperthermia: No - Suicidal Assessment Feels Threatened In Home Enviroment: No Family/Social History - Physician Review Nursing Documentation Reviewed: Yes Family/Social History: Unknown Family HX Smoking Status: Former Smoker Hx Alcohol Use: Yes (SOCIAL BEER LAST DRANK WEDNESDAY) Hx Substance Use: No Allergies/Home Meds Allergies/Adverse Reactions: Allergies No Known Allergies Allergy (Verified 11/16/17 13:44) Home Medications: Home Meds Medication Instructions Recorded Confirmed Omeprazole 20 mg PO DAILY 11/16/17 08/02/18 Tamsulosin [Flomax] 1 cap PO DAILY 11/16/17 08/02/18 Gabapentin [Gralise] 300 mg PO HS 08/02/18 08/02/18 Meloxicam [Mobic] 7.5 mg PO DAILY 08/02/18 08/02/18 traMADol [Ultram] 50 mg PO TID PRN 08/02/18 08/02/18 Review of Systems - Physician Review All systems were reviewed & negative as marked: Yes - Review of Systems Respiratory: SOB. absent: Cough, Sputum, Wheezing Cardiovascular: Palpitations, Other (Chest pressure). absent: Chest Pain Physical Exam Vital Signs Reviewed: Yes Vital Signs Temp Pulse Resp BP Pulse Ox 08/02/18 14:25 98.2 F 123 H 20 107/62 98 Temperature: Afebrile Blood Pressure: Normal Pulse: Irregular Respiratory Rate: Normal Appearance: Positive for: Well-Appearing, Non-Toxic, Uncomfortable Mental Status: Positive for: Alert and Oriented X 3 - Systems Exam Head: Present: Atraumatic, Normocephalic Pupils: Present: PERRL Extroacular Muscles: Present: EOMI Conjunctiva: Present: Normal Mouth: Present: Moist Mucous Membranes Neck: Present: Normal Range of Motion Respiratory/Chest: Present: Clear to Auscultation, Good Air Exchange. No: Respiratory Distress, Accessory Muscle Use Cardiovascular: Present: Irregular Rhythm Abdomen: Present: Normal Bowel Sounds. No: Tenderness, Distention, Peritoneal Signs Upper Extremity: Present: Normal Inspection. No: Cyanosis, Edema Lower Extremity: Present: Normal Inspection, Edema Neurological: Present: GCS=15, CN II-XII Intact, Speech Normal Skin: Present: Warm, Dry, Normal Color Psychiatric: Present: Alert, Oriented x 3, Normal Insight, Normal Concentration Medical Decision Making ED Course and Treatment: 08/02/18 15:27 Impression 53y/o M w/ chest tightness and palpitations Differential Diagnosis Includes But Is Not Limited To: Atrial Fibrillation PE PNA Plan --Labs --IVF --Cardizem IVP --Cardizem gtt --UA --CXR --Reassess & disposition Progress Notes 08/02/18 15:30 Patient's HR noted to decrease to 102 after initial dose of Cardizem. Will continue to monitor. 08/02/18 16:40 Patient's HR noted to be 130s. Will start Cardizem drip @ 5 for rate control. Discussed case with Dr. Del Valle(hospitalist) who accepts the patient onto his service. 08/02/18 17:30 Patient noted to be bradycardic to 50s. Cardizem drip stopped. - RAD Interpretation Narrative RAD Interpretations (Text): 08/02/18 16:18 Chest X-ray reviewed, shows: FINDINGS: LUNGS:No active pulmonary disease. PLEURA:No significant pleural effusion identified, no pneumothorax apparent. CARDIOVASCULAR:Minimal aortic calcification Mild cardiomegaly no pulmonary vascular congestion. OSSEOUS STRUCTURES:No significant abnormalities. VISUALIZED UPPER ABDOMEN:Normal. OTHER FINDINGS:None. IMPRESSION: No active disease. Radiology Orders: 08/02/18 15:01 CHEST PORTABLE [RAD] Stat Service Line Layer: Radiologist - EKG Interpretation EKG Interpretation (Text): 08/02/18 14:33 EKG reviewed, shows: Irregular irregular rhythm at 132bpm, consistent with Afib with RVR, no distinct p waves seen, No signs of ST depressions. 08/02/18 15:17 EKG reviewed, shows: Afib at 106bpm, with RVR, no ST depressions. no T-wave inversions. Interpreted by ED Physician: Yes Type: 12 lead EKG - Medication Orders Current Medication Orders: Discontinued Medications Diltiazem HCl (Cardizem) 20 mg IVP STAT STA Stop: 08/02/18 15:01 Disposition/Present on Arrival - Present on Arrival Any Indicators Present on Arrival: No History of DVT/PE: No History of Uncontrolled Diabetes: No Urinary Catheter: No History of Decub. Ulcer: No History Surgical Site Infection Following: None - Disposition Have Diagnosis and Disposition been Completed?: Yes Diagnosis: Atrial fibrillation Disposition: HOSPITALIZED Disposition Time: 16:30 Patient Plan: Observation Patient Problems: Current Active Problems Problem Status Onset Atrial fibrillation Acute Condition: GUARDED
[2018-08-02 15:41] LABS: BASO # 0.06 K/mm3 (0.0-2.0); EOS # 0.2 (0.0-0.7); EOS % 3.8 % (1.5-5.0); GRAN # 3.94 (1.4-6.5); GRAN % 65.4 % (50.0-68.0); HEMOGLOBIN 14.1 g/dL (14.0-18.0); LYMPH # 1.4 (1.2-3.4); LYMPH % 23.2 % (22.0-35.0); MEAN CELL VOLUME 88.1 fl (80.0-105.0); MEAN CORPUSCULAR HGB CONC 34.1 g/dl (31.0-37.0); MEAN PLATELET VOLUME 10.2 fl (7.0-11.0); MONO # 0.4 (0.1-0.6); MONO % 6.6 % (1.0-6.0); RBC 4.7 10^6/uL (3.5-6.1); RED CELL DISTRIBUTION WIDTH 13.8 % (11.5-14.5)
[2018-08-02 15:52] LABS: ALT/SGPT 41 U/L (7-56); AST/SGOT 29 U/L (17-59); BLOOD UREA NITROGEN 14 mg/dL (7-21); CALCIUM 8.7 mg/dL (8.4-10.5); GFR NON-AFRICAN AMERICAN > 60
[2018-08-02] MEDS ORDERED: diltiaZEM IVPB 100mg in NS 100 ML IV ONE (15:58)
--- NOTE | 2018-08-02 16:16 | RAD ---
Date of service: 08/02/2018 HISTORY: sob COMPARISON: 09/02/2016 FINDINGS: LUNGS: No active pulmonary disease. PLEURA: No significant pleural effusion identified, no pneumothorax apparent. CARDIOVASCULAR: Minimal aortic calcification Mild cardiomegaly no pulmonary vascular congestion. OSSEOUS STRUCTURES: No significant abnormalities. VISUALIZED UPPER ABDOMEN: Normal. OTHER FINDINGS: None. IMPRESSION: No active disease.
[2018-08-02 16:17] LABS: B-TYPE NATRIURETIC PEPTIDE 107 pg/mL (0-450); TROPONIN I < 0.01 ng/mL
[2018-08-02 16:46] LABS: PH,URINE 6.5 (4.7-8.0); URINE BILIRUBIN NEGATIVE (NEGATIVE); URINE BLOOD NEGATIVE (NEGATIVE); URINE GLUCOSE (UA) NEGATIVE (NEGATIVE); URINE LEUKOCYTE ESTERASE NEGATIVE Leu/uL (NEGATIVE); URINE PROTEIN NEGATIVE mg/dL (<30 mg/dL); URINE UROBILINOGEN 0.2 E.U./dL (<1 E.U./dL)
[2018-08-02 17:04] LABS: URINE APPEARANCE CLEAR (CLEAR); URINE COLOR YELLOW (YELLOW)
--- NOTE | 2018-08-02 18:24 | CP.PCM.HP ---
<HernanEugenia franklind - Last Filed: 08/02/18 18:55> History of Present Illness - History of Present Illness History of Present Illness: Resident Doris Becerra DO PGY-1 H&P Note for Hospitalist: Dr. Grijalva: CC: Chest pressure, palpitations Pt is a 53yo M with pmhx of afib on cardizem, HTN, HLD, obesity, PUD, GERD, and lower GI bleed who presents today for chest pressure, SOB and palpitations. Pt states that he has been having dyspnea on exertion for the past 2 days. Today he states that while he was folding his laundry he began another episode of palpitations and chest pressure which lasted for about 10-15 mins per pt. Pt at the time of interview stated that he is having no fevers, chills, chest pain, SOB, cough, pleuritic chest pain, palpitations, abd pain, n/v, c/d, dizziness, headache, heat intolerance, agitation, numbness or tingling. Pmhx: Afib on cardizem, HTN, HLD, obesity, PUD, GERD, and lower GI bleed Pshx: Roseline 3-4 years ago, Knee ligament repair 6 years ago All: NKDA Social: No tobacco use, etoh use 1x q2wks(social), denies illicit drug use Fam Hx: Dad: DM PMD: Chet Pharm: Cristian Cardio: [facility]iology Present on Admission - Present on Admission Any Indicators Present on Admission: No Review of Systems - Review of Systems All systems: reviewed and no additional remarkable complaints except Review of Systems: 12 point ROS is negative except for noted in HPI above Past Patient History - Infectious Disease Hx of Infectious Diseases: None - Tetanus Immunizations Tetanus Immunization: Unknown - Past Medical History & Family History Past Medical History?: Yes - Past Social History Smoking Status: Former Smoker - CARDIAC Hx Cardiac Disorders: Yes Hx Hypertension: Yes - PULMONARY Hx Respiratory Disorders: Yes (USED TO SMOKE 1 CIGARETTE A DAY-QUIT) - NEUROLOGICAL Hx Neurological Disorder: No - HEENT Hx HEENT Problems: No - RENAL Hx Chronic Kidney Disease: No - ENDOCRINE/METABOLIC Hx Endocrine Disorders: No - HEMATOLOGICAL/ONCOLOGICAL Hx Blood Disorders: Yes Hx Blood Transfusions: Yes - INTEGUMENTARY Hx Dermatological Problems: Yes Other/Comment: MULTIPLE TATTOOS ALL OVER. - MUSCULOSKELETAL/RHEUMATOLOGICAL Hx Musculoskeletal Disorders: Yes Hx Arthritis: Yes Hx Falls: Yes Hx Unsteady Gait: Yes (CANE) Other/Comment: R KNEE SX - GASTROINTESTINAL Hx Gastrointestinal Disorders: Yes (HEMORRHOIDS,GI BLEED,COLONOSCOPY,ENDOSCOPY) Hx Gall Bladder Disease: Yes - GENITOURINARY/GYNECOLOGICAL Hx Genitourinary Disorders: No - PSYCHIATRIC Hx Psychophysiologic Disorder: No Hx Substance Use: No - SURGICAL HISTORY Hx Cholecystectomy: Yes Hx Orthopedic Surgery: Yes (R KNEE) Other/Comment: COLONOSCOPY, ENDOSCOPY - ANESTHESIA Hx Anesthesia: Yes Hx Anesthesia Reactions: No Hx Malignant Hyperthermia: No Meds Allergies/Adverse Reactions: Allergies Allergy/AdvReac Type Severity Reaction Status Date / Time No Known Allergies Allergy Verified 11/16/17 13:44 Physical Exam - Constitutional Appears: Well, Non-toxic, No Acute Distress - Head Exam Head Exam: ATRAUMATIC, NORMAL INSPECTION, NORMOCEPHALIC - Eye Exam Eye Exam: EOMI, Normal appearance, PERRL - Respiratory Exam Respiratory Exam: Clear to Auscultation Bilateral, NORMAL BREATHING PATTERN. absent: Accessory Muscle Use, Decreased Breath Sounds, Rales, Rhonchi, Wheezes, Respiratory Distress, Stridor - Cardiovascular Exam Cardiovascular Exam: RRR, +S1, +S2. absent: Gallop, Rubs - GI/Abdominal Exam GI & Abdominal Exam: Normal Bowel Sounds, Soft. absent: Firm, Guarding, Tenderness - Extremities Exam Extremities exam: Positive for: full ROM, normal capillary refill, normal inspection, pedal pulses present. Negative for: calf tenderness, pedal edema - Back Exam Back exam: NORMAL INSPECTION. absent: CVA tenderness (L), CVA tenderness (R) - Neurological Exam Neurological exam: Alert, Oriented x3 - Psychiatric Exam Psychiatric exam: Normal Affect, Normal Mood - Skin Skin Exam: Dry, Intact, Normal Color, Warm Results - Vital Signs Recent Vital Signs: Last Vital Signs Temp 98.2 F 08/02/18 14:25 Pulse 58 L 08/02/18 17:32 Resp 16 08/02/18 17:32 BP 117/69 08/02/18 17:32 Pulse Ox 96 08/02/18 17:32 - Labs Result Diagrams: 08/02/18 15:00 08/02/18 15:00 Labs: Laboratory Results - last 24 hr 08/02/18 08/02/18 08/02/18 15:00 15:00 15:00 WBC 6.0 RBC 4.70 Hgb 14.1 D Hct 41.4 L MCV 88.1 D MCH 30.0 MCHC 34.1 RDW 13.8 Plt Count 290 MPV 10.2 Gran % 65.4 Lymph % (Auto) 23.2 [place] % (Auto) 6.6 H Eos % (Auto) 3.8 Baso % (Auto) 1.0 Gran # 3.94 Lymph # (Auto) 1.4 [place] # (Auto) 0.4 Eos # (Auto) 0.2 Baso # (Auto) 0.06 APTT 30.8 Sodium 137 Potassium 3.9 Chloride 99 Carbon Dioxide 30 Anion Gap 12 BUN 14 Creatinine 0.7 L Est GFR ( Amer) > 60 Est GFR (Non-Af Amer) > 60 Random Glucose 115 H Calcium 8.7 Magnesium 1.9 Total Bilirubin 0.4 AST 29 ALT 41 Alkaline Phosphatase 84 Troponin I < 0.01 NT-Pro-B Natriuret Pep 107 Total Protein 8.2 Albumin 4.0 Globulin 4.2 Albumin/Globulin Ratio 1.0 L Urine Color Urine Appearance Urine pH Ur Specific [place] Urine Protein Urine Glucose (UA) Urine Ketones Urine Blood Urine Nitrate Urine Bilirubin Urine Urobilinogen Ur Leukocyte Esterase 08/02/18 16:39 WBC RBC Hgb Hct MCV MCH MCHC RDW Plt Count MPV Gran % Lymph % (Auto) [place] % (Auto) Eos % (Auto) Baso % (Auto) Gran # Lymph # (Auto) [place] # (Auto) Eos # (Auto) Baso # (Auto) APTT Sodium Potassium Chloride Carbon Dioxide Anion Gap BUN Creatinine Est GFR ( Amer) Est GFR (Non-Af Amer) Random Glucose Calcium Magnesium Total Bilirubin AST ALT Alkaline Phosphatase Troponin I NT-Pro-B Natriuret Pep Total Protein Albumin Globulin Albumin/Globulin Ratio Urine Color Yellow Urine Appearance Clear Urine pH 6.5 Ur Specific [place] <= 1.005 Urine Protein Negative Urine Glucose (UA) Negative Urine Ketones Negative Urine Blood Negative Urine Nitrate Negative Urine Bilirubin Negative Urine Urobilinogen 0.2 Ur Leukocyte Esterase Negative Assessment & Plan - Assessment and Plan (Free Text) Assessment: Pt is a 53yo M with pmhx of afib on cardizem, HTN, HLD, obesity, PUD, GERD, and lower GI bleed who presents today for chest pressure, SOB and palpitations. Pt was started on cardizem drip in ED and converted to NSR in the 60's with no chest pain or pressure. Plan: 1. Paroxysmal Afib w/ RVR: - Pt spontaneously converted to NSR after cardizem drip - Echo done in november with EF of 63 - f/u TSH, free T4 - f/u trops - f/u UDS - f/u EtOH levels - f/u A1c - f/u lipid profile - Cardio consulted - CHADs VASc = 1, but pt has hx of GI bleed, will await cardio recs per anti- coagulation 2. HTN: - Holding amlodipine at this time - Will give cardizem 30mg TID with holding parameters 3. GERD: - Protonix 40mg PO QD 4. PPx: Matthias Prediction Score: 1 DVT: SCDs GI: Protonix 40mg PO QD Pt case discussed and plan approved by Dr. Valentine Becerra DO Internal Medicine Resident PGY-1 <Shayna Grijalva - Last Filed: 08/02/18 22:57> Results - Vital Signs Recent Vital Signs: Last Vital Signs Temp 98.2 F 08/02/18 14:25 Pulse 74 08/02/18 20:15 Resp 14 08/02/18 20:15 BP 125/66 08/02/18 20:15 Pulse Ox 97 08/02/18 20:15 - Labs Result Diagrams: 08/02/18 15:00 08/02/18 15:00 Labs: Laboratory Results - last 24 hr 08/02/18 08/02/18 08/02/18 15:00 15:00 15:00 WBC 6.0 RBC 4.70 Hgb 14.1 D Hct 41.4 L MCV 88.1 D MCH 30.0 MCHC 34.1 RDW 13.8 Plt Count 290 MPV 10.2 Gran % 65.4 Lymph % (Auto) 23.2 [place] % (Auto) 6.6 H Eos % (Auto) 3.8 Baso % (Auto) 1.0 Gran # 3.94 Lymph # (Auto) 1.4 [place] # (Auto) 0.4 Eos # (Auto) 0.2 Baso # (Auto) 0.06 APTT 30.8 Sodium 137 Potassium 3.9 Chloride 99 Carbon Dioxide 30 Anion Gap 12 BUN 14 Creatinine 0.7 L Est GFR ( Amer) > 60 Est GFR (Non-Af Amer) > 60 Random Glucose 115 H Calcium 8.7 Magnesium 1.9 Total Bilirubin 0.4 AST 29 ALT 41 Alkaline Phosphatase 84 Troponin I < 0.01 NT-Pro-B Natriuret Pep 107 Total Protein 8.2 Albumin 4.0 Globulin 4.2 Albumin/Globulin Ratio 1.0 L TSH 3rd Generation Urine Color Urine Appearance Urine pH Ur Specific [place] Urine Protein Urine Glucose (UA) Urine Ketones Urine Blood Urine Nitrate Urine Bilirubin Urine Urobilinogen Ur Leukocyte Esterase Urine Opiates Screen Urine Methadone Screen Ur Barbiturates Screen Ur Phencyclidine Scrn Ur Amphetamines Screen U Benzodiazepines Scrn U Oth Cocaine Metabols U Cannabinoids Screen Alcohol, Quantitative 08/02/18 08/02/18 08/02/18 15:00 16:39 20:22 WBC RBC Hgb Hct MCV MCH MCHC RDW Plt Count MPV Gran % Lymph % (Auto) [place] % (Auto) Eos % (Auto) Baso % (Auto) Gran # Lymph # (Auto) [place] # (Auto) Eos # (Auto) Baso # (Auto) APTT Sodium Potassium Chloride Carbon Dioxide Anion Gap BUN Creatinine Est GFR ( Amer) Est GFR (Non-Af Amer) Random Glucose Calcium Magnesium Total Bilirubin AST ALT Alkaline Phosphatase Troponin I NT-Pro-B Natriuret Pep Total Protein Albumin Globulin Albumin/Globulin Ratio TSH 3rd Generation 1.52 Urine Color Yellow Urine Appearance Clear Urine pH 6.5 Ur Specific [place] <= 1.005 Urine Protein Negative Urine Glucose (UA) Negative Urine Ketones Negative Urine Blood Negative Urine Nitrate Negative Urine Bilirubin Negative Urine Urobilinogen 0.2 Ur Leukocyte Esterase Negative Urine Opiates Screen Negative Urine Methadone Screen Negative Ur Barbiturates Screen Negative Ur Phencyclidine Scrn Negative Ur Amphetamines Screen Negative U Benzodiazepines Scrn Negative U Oth Cocaine Metabols Negative U Cannabinoids Screen Negative Alcohol, Quantitative < 10 Attending/Attestation - Attestation I have personally seen and examined this patient.: Yes I have fully participated in the care of the patient.: Yes I have reviewed all pertinent clinical information: Yes
--- NOTE | 2018-08-02 19:22 | CARD ---
APPROVED REPORT Date of service: 08/02/2018 EKG Measurement Heart [id number] <Conclusion> Atrial fibrillation with rapid ventricular response Abnormal ECG
--- NOTE | 2018-08-02 19:24 | CARD ---
APPROVED REPORT Date of service: 08/02/2018 EKG Measurement Heart [id number] <Conclusion> Atrial fibrillation with rapid ventricular response Abnormal ECG
[2018-08-02 20:54] LABS: BARBITURATES, UR NEGATIVE (NEGATIVE); BENZODIAZEPINES, UR NEGATIVE (NEGATIVE); OPIATES, UR NEGATIVE (NEGATIVE); PHENCYCLIDINE, UR NEGATIVE (NEGATIVE)
[2018-08-02] MEDS ORDERED: GABAPENTIN 300 MG PO SCH (22:00)
[2018-08-03 00:27] LABS: TROPONIN I < 0.01 ng/mL
[2018-08-03 06:34] LABS: BASO # 0.06 K/mm3 (0.0-2.0); BASO % 0.8 % (0.0-3.0); EOS # 0.4 (0.0-0.7); EOS % 4.6 % (1.5-5.0); GRAN # 4.63 (1.4-6.5); GRAN % 61.4 % (50.0-68.0); HEMOGLOBIN 13.5 g/dL (14.0-18.0); LYMPH # 2.1 (1.2-3.4); LYMPH % 27.2 % (22.0-35.0); MEAN CELL VOLUME 88.9 fl (80.0-105.0); MEAN CORPUSCULAR HEMOGLOBIN 29.5 pg (25.0-35.0); MEAN CORPUSCULAR HGB CONC 33.2 g/dl (31.0-37.0); MEAN PLATELET VOLUME 9.9 fl (7.0-11.0); MONO # 0.5 (0.1-0.6); RBC 4.58 10^6/uL (3.5-6.1); RED CELL DISTRIBUTION WIDTH 14.2 % (11.5-14.5); WHITE BLOOD COUNT 7.5 10^3/uL (4.5-11.0)
[2018-08-03 06:51] LABS: ALBUMIN 3.9 g/dL (3.0-4.8); ALT/SGPT 37 U/L (7-56); AST/SGOT 26 U/L (17-59); BLOOD UREA NITROGEN 16 mg/dL (7-21); CALCIUM 8.9 mg/dL (8.4-10.5); GFR NON-AFRICAN AMERICAN > 60; HDL CHOLESTEROL 32 mg/dL (29-60)
[2018-08-03 07:01] LABS: TROPONIN I < 0.01 ng/mL
[2018-08-03 07:02] LABS: LDL CHOLESTEROL 109 mg/dL (0-129)
[2018-08-03] MEDS: Pantoprazole 40 mg EC Tab PO SCH (10:18)
[2018-08-03] MEDS ORDERED: Iohexol 350 MG/100 ML VIAL ONE (11:52)
--- NOTE | 2018-08-03 12:28 | CON ---
DATE: 08/03/2018 REASON FOR CONSULTATION: Chest pain. HISTORY OF PRESENT ILLNESS: The patient is 53-year-old morbidly obese male who according to him weighs around 380 pounds, presented with chest discomfort. The patient is being followed by Dr. Engel as an outpatient and in May 2016 underwent a Lexiscan which was negative, normal gated wall motion and normal ejection fraction. The patient also has a history of cholelithiasis. The patient denies any dizziness or syncope. MEDICATIONS: Cardizem 30 mg t.i.d., Neurontin mg once a day, Protonix 40 mg p.o. once a day. PHYSICAL EXAMINATION: The patient is a morbidly obese male who does not appear to be in acute distress. Vital signs: Blood pressure 139/83, heart rate 58, temperature 98.5, respirations 22. HEENT: Normocephalic. Chest: Distant breath sounds. Heart: S1, S2 regular. Abdomen soft. Extremities: 2+ pitting edema with chronic skin changes. LABORATORY DATA: Urine drug screen is negative. Alcohol level is less than 10. SMA-7 today is within normal limits. Three sets of troponin's are negative. PTT is within normal limits. Hemoglobin and hematocrit 15.5 and 40.7, white count and platelet count are within normal limits. EKG revealed atrial fibrillation with rapid ventricular response at rate of 106. Echocardiograph study in November of this year revealed normal ejection fraction. Chest x-ray revealed mild CHF. ASSESSMENT: 1. New onset atrial fibrillation. 2. Chest pain, myocardial infarction is ruled out to rule out pulmonary infarction. 3. Morbid obesity. 4. History of cholelithiasis. RECOMMENDATIONS: The case discussed with the medical team. Continue current Cardizem at 30 mg t.i.d. hold for heart rate below 70. Start therapeutic subcutaneous Lovenox regimen. Obtain chest CT angio to rule out pulmonary embolus. Ananda Chopra MD
[2018-08-03] MEDS ORDERED: Enoxaparin 120 mg Syringe SC SCH (12:45)
--- NOTE | 2018-08-03 12:48 | CT ---
Date of service: 08/03/2018 PROCEDURE: CT Chest with contrast (Pulmonary Angiogram) HISTORY: R/O PE COMPARISON: None available. TECHNIQUE: Axial computed tomography images were obtained of the chest in the pulmonary arterial phase of enhancement. Coronal and sagittal reformatted images were created and reviewed. Intravenous contrast dose: 100 cc of Omni 350 Radiation dose: Total exam DLP = 556.03 mGy-cm. This CT exam was performed using one or more of the following dose reduction techniques: Automated exposure control, adjustment of the mA and/or kV according to patient size, and/or use of iterative reconstruction technique. FINDINGS: PULMONARY ARTERIES: Unremarkable. No pulmonary embolism. AORTA: No acute findings. No thoracic aortic aneurysm. No aortic atherosclerotic calcification or mural plaque present. LUNGS: Unremarkable. No nodule, mass or pulmonary consolidation. PLEURAL SPACES: Unremarkable. No effusion or pneumothorax. HEART: Unremarkable. No cardiomegaly. No significant pericardial effusion. LYMPH NODES: No lymphadenopathy. BONES, CHEST WALL: Unremarkable. No fracture or destructive lesion OTHER FINDINGS: Unremarkable. IMPRESSION: Unremarkable CT pulmonary angiogram. No pulmonary embolus.
--- NOTE | 2018-08-03 13:11 | CP.PCM.PN ---
<Jhon Asif - Last Filed: 08/03/18 16:25> Subjective - Date & Time of Evaluation Date of Evaluation: 08/03/18 Time of Evaluation: 08:00 - Subjective Subjective: PGY1 Medicine Progress Note for Dr. Ibrahim Patient seen and examined at bedside this AM. No acute overnight events reported. Patient denies any new episodes of chest pain or palpitations this morning. No fevers/chills, headaches, dizziness, changes in vision, sob, abdominal pain, n/v/d/c. Objective - Vital Signs/Intake and Output Vital Signs (last 24 hours): Temp Pulse Resp BP Pulse Ox 98.6 F 69 20 113/62 98 08/03/18 12:00 08/03/18 12:00 08/03/18 12:00 08/03/18 12:00 08/03/18 06:00 Intake and Output: 08/03/18 08/03/18 06:59 18:59 Intake Total 360 Balance 360 - Medications Medications: Current Medications Diltiazem HCl (Cardizem) 30 mg PO TID [facility] Enoxaparin Sodium (Lovenox) 170 mg SC Q12H [facility]; Protocol Gabapentin (Neurontin) 300 mg PO HS [facility] Last Admin: 08/02/18 22:58 Dose: 300 mg Pantoprazole Sodium (Protonix Ec Tab) 40 mg PO DAILY [facility] Last Admin: 08/03/18 10:18 Dose: 40 mg Tamsulosin HCl (Flomax) 0.4 mg PO DAILY [facility] Last Admin: 08/03/18 10:21 Dose: 0.4 mg - Labs Labs: 08/03/18 06:00 08/03/18 06:00 APTT 30.8 Seconds (25.1-36.5) 08/02/18 15:00 - Constitutional Appears: Non-toxic, No Acute Distress - Head Exam Head Exam: ATRAUMATIC, NORMAL INSPECTION, NORMOCEPHALIC - Eye Exam Eye Exam: EOMI, Normal appearance - ENT Exam ENT Exam: Mucous Membranes Moist, Normal Exam - Neck Exam Neck Exam: Full ROM, Normal Inspection - Respiratory Exam Respiratory Exam: Clear to Ausculation Bilateral, NORMAL BREATHING PATTERN. absent: Accessory Muscle Use, Rales, Rhonchi, Wheezes, Respiratory Distress, Stridor - Cardiovascular Exam Cardiovascular Exam: REGULAR RHYTHM, +S1, +S2 - GI/Abdominal Exam GI & Abdominal Exam: Soft, Normal Bowel Sounds. absent: Distended, Firm, Guarding, Rigid, Tenderness, Organomegaly, Rebound - Extremities Exam Extremities Exam: Full ROM, Normal Capillary Refill, Normal Inspection - Back Exam Back Exam: NORMAL INSPECTION - Neurological Exam Neurological Exam: Alert, Awake, Oriented x3 - Psychiatric Exam Psychiatric exam: Normal Affect, Normal Mood - Skin Skin Exam: Dry, Intact, Normal Color, Warm Assessment and Plan - Assessment and Plan (Free Text) Assessment: 53 yo obese M with PMHx of afib on home cardizem, HTN, HLD, PUD, hx lower GI bleed admitted for monitoring of new onset afib with RVR. Plan: Paroxysmal Afib w/ RVR - Pt spontaneously converted to NSR s/p cardizem drip in ED - Echo (11/2017): EF of 63 - TSH/T4 within normal limits - trops negative x3 - UDS, alcohol wnl - f/u A1c - lipid panel: TG 164, chol 166, HDL 109 - CHADs VASc = 1, but pt has hx of GI bleed, will await cardio recs per anti- coagulation -Cardiology recs (Dr. Engel) appreciated -likely new onset Afib precipitated by underlying obesity, possibly sleep apnea -c/w home cardizem for rate control -eliquis 5 BID; pt has been informed to stop medication and notify doctor if any bleeding or dark stool is noted -outpatient sleep study HTN - Home norvasc held - Will give cardizem 30mg TID with holding parameters GERD - Protonix 40mg PO QD PPx, Diet, Disposition -DVT: SCDs -GI: Protonix 40mg PO QD -Dispo: monitor overnight, likely d/c tomorrow Case discussed with Dr. Alexandria Asif DO, PGY-1 <Micaela Ibrahim - Last Filed: 08/04/18 14:38> Objective - Vital Signs/Intake and Output Vital Signs (last 24 hours): Temp Pulse Resp BP Pulse Ox 98.4 F 55 L 20 148/84 97 08/04/18 12:00 08/04/18 14:20 08/04/18 12:00 08/04/18 12:00 08/04/18 00:01 Intake and Output: 08/04/18 08/04/18 06:59 18:59 Intake Total 720 Balance 720 - Labs Labs: 08/04/18 06:00 08/04/18 06:00 APTT 30.8 Seconds (25.1-36.5) 08/02/18 15:00 Attending/Attestation - Attestation I have personally seen and examined this patient.: Yes I have fully participated in the care of the patient.: Yes I have reviewed all pertinent clinical information, including history, physical exam and plan: Yes Notes (Text): 08/04/18 14:33 Medical record note made by the resident after discussion with my direction and input after the patient was personally seen and examined by me. I have reviewed the chart and agree that the record accurately reflects by personal performance of the history, physical exam, data review, and medical decision-making, in the course for the patient. I have also personally directed the plan of care. 53 yrs old obese male with PMHof HTN, HLD, PUD, was admitted with palpitation found to have afib with RVR. Heart rate is better controlled with cardizem.Patient was evaluated by cardiology .ERNESTO vasc Score is 2, has been started on anticoagulation with Apixiban. Issue of anticoagulation was discussed ion detail with him. We will monitor patient in telemetry . Patient has underlying sleep apnea, will need sleep study as out patient. Management plan was discussed in detail with patient. Education was provided.
--- NOTE | 2018-08-03 13:23 | CP.PCM.CON ---
History of Present Illness - History of Present Illness History of Present Illness: patient is a 53 y/o man whom we have seen in the office: PMHX: HTN chronic stable, obesity, hx of palpitation Past Patient History - Infectious Disease Hx of Infectious Diseases: None - Tetanus Immunizations Tetanus Immunization: Unknown - Past Medical History & Family History Past Medical History?: Yes - Past Social History Smoking Status: Never Smoked - CARDIAC Hx Cardiac Disorders: Yes Hx Hypertension: Yes - PULMONARY Hx Respiratory Disorders: Yes (USED TO SMOKE 1 CIGARETTE A DAY-QUIT) - NEUROLOGICAL Hx Neurological Disorder: No - HEENT Hx HEENT Problems: No - RENAL Hx Chronic Kidney Disease: No - ENDOCRINE/METABOLIC Hx Endocrine Disorders: No - HEMATOLOGICAL/ONCOLOGICAL Hx Blood Disorders: Yes - INTEGUMENTARY Hx Dermatological Problems: Yes Other/Comment: MULTIPLE TATTOOS ALL OVER. - MUSCULOSKELETAL/RHEUMATOLOGICAL Hx Musculoskeletal Disorders: Yes Hx Arthritis: Yes Hx Falls: Yes Hx Unsteady Gait: Yes (CANE) Other/Comment: R KNEE SX - GASTROINTESTINAL Hx Gastrointestinal Disorders: Yes (HEMORRHOIDS,GI BLEED,COLONOSCOPY,ENDOSCOPY) Hx Gall Bladder Disease: Yes - GENITOURINARY/GYNECOLOGICAL Hx Genitourinary Disorders: No - PSYCHIATRIC Hx Psychophysiologic Disorder: No - SURGICAL HISTORY Hx Cholecystectomy: Yes Hx Orthopedic Surgery: Yes (R KNEE) Other/Comment: COLONOSCOPY, ENDOSCOPY - ANESTHESIA Hx Anesthesia: Yes Hx Anesthesia Reactions: No Hx Malignant Hyperthermia: No Meds Allergies/Adverse Reactions: Allergies Allergy/AdvReac Type Severity Reaction Status Date / Time No Known Allergies Allergy Verified 11/16/17 13:44 - Medications Medications: Current Medications Diltiazem HCl (Cardizem) 30 mg PO TID [facility] Enoxaparin Sodium (Lovenox) 170 mg SC Q12H [facility]; Protocol Gabapentin (Neurontin) 300 mg PO HS [facility] Last Admin: 08/02/18 22:58 Dose: 300 mg Pantoprazole Sodium (Protonix Ec Tab) 40 mg PO DAILY [facility] Last Admin: 08/03/18 10:18 Dose: 40 mg Tamsulosin HCl (Flomax) 0.4 mg PO DAILY [facility] Last Admin: 08/03/18 10:21 Dose: 0.4 mg Results - Vital Signs Recent Vital Signs: Last Vital Signs Temp 98.6 F 08/03/18 12:00 Pulse 69 08/03/18 12:00 Resp 20 08/03/18 12:00 BP 113/62 08/03/18 12:00 Pulse Ox 98 08/03/18 06:00 - Labs Result Diagrams: 08/03/18 06:00 08/03/18 06:00 Labs: Laboratory Results - last 24 hr 08/02/18 08/02/18 08/02/18 15:00 15:00 15:00 WBC 6.0 RBC 4.70 Hgb 14.1 D Hct 41.4 L MCV 88.1 D MCH 30.0 MCHC 34.1 RDW 13.8 Plt Count 290 MPV 10.2 Gran % 65.4 Lymph % (Auto) 23.2 [place] % (Auto) 6.6 H Eos % (Auto) 3.8 Baso % (Auto) 1.0 Gran # 3.94 Lymph # (Auto) 1.4 [place] # (Auto) 0.4 Eos # (Auto) 0.2 Baso # (Auto) 0.06 APTT 30.8 D-Dimer, Quantitative Sodium 137 Potassium 3.9 Chloride 99 Carbon Dioxide 30 Anion Gap 12 BUN 14 Creatinine 0.7 L Est GFR ( Amer) > 60 Est GFR (Non-Af Amer) > 60 Random Glucose 115 H Calcium 8.7 Phosphorus Magnesium 1.9 Total Bilirubin 0.4 AST 29 ALT 41 Alkaline Phosphatase 84 Lactate Dehydrogenase Total Creatine Kinase Troponin I < 0.01 NT-Pro-B Natriuret Pep 107 Total Protein 8.2 Albumin 4.0 Globulin 4.2 Albumin/Globulin Ratio 1.0 L Triglycerides Cholesterol LDL Cholesterol Direct HDL Cholesterol TSH 3rd Generation Urine Color Urine Appearance Urine pH Ur Specific Sun Urine Protein Urine Glucose (UA) Urine Ketones Urine Blood Urine Nitrate Urine Bilirubin Urine Urobilinogen Ur Leukocyte Esterase Urine Opiates Screen Urine Methadone Screen Ur Barbiturates Screen Ur Phencyclidine Scrn Ur Amphetamines Screen U Benzodiazepines Scrn U Oth Cocaine Metabols U Cannabinoids Screen Alcohol, Quantitative 08/02/18 08/02/18 08/02/18 15:00 16:39 20:22 WBC RBC Hgb Hct MCV MCH MCHC RDW Plt Count MPV Gran % Lymph % (Auto) [place] % (Auto) Eos % (Auto) Baso % (Auto) Gran # Lymph # (Auto) [place] # (Auto) Eos # (Auto) Baso # (Auto) APTT D-Dimer, Quantitative Sodium Potassium Chloride Carbon Dioxide Anion Gap BUN Creatinine Est GFR ( Amer) Est GFR (Non-Af Amer) Random Glucose Calcium Phosphorus Magnesium Total Bilirubin AST ALT Alkaline Phosphatase Lactate Dehydrogenase Total Creatine Kinase Troponin I NT-Pro-B Natriuret Pep Total Protein Albumin Globulin Albumin/Globulin Ratio Triglycerides Cholesterol LDL Cholesterol Direct HDL Cholesterol TSH 3rd Generation 1.52 Urine Color Yellow Urine Appearance Clear Urine pH 6.5 Ur Specific Sun <= 1.005 Urine Protein Negative Urine Glucose (UA) Negative Urine Ketones Negative Urine Blood Negative Urine Nitrate Negative Urine Bilirubin Negative Urine Urobilinogen 0.2 Ur Leukocyte Esterase Negative Urine Opiates Screen Negative Urine Methadone Screen Negative Ur Barbiturates Screen Negative Ur Phencyclidine Scrn Negative Ur Amphetamines Screen Negative U Benzodiazepines Scrn Negative U Oth Cocaine Metabols Negative U Cannabinoids Screen Negative Alcohol, Quantitative < 10 08/02/18 08/03/18 08/03/18 23:55 06:00 06:00 WBC 7.5 D RBC 4.58 Hgb 13.5 L Hct 40.7 L MCV 88.9 MCH 29.5 MCHC 33.2 RDW 14.2 Plt Count 287 MPV 9.9 Gran % 61.4 Lymph % (Auto) 27.2 [place] % (Auto) 6.0 Eos % (Auto) 4.6 Baso % (Auto) 0.8 Gran # 4.63 Lymph # (Auto) 2.1 [place] # (Auto) 0.5 Eos # (Auto) 0.4 Baso # (Auto) 0.06 APTT D-Dimer, Quantitative Sodium 140 Potassium 4.3 Chloride 102 Carbon Dioxide 31 Anion Gap 12 BUN 16 Creatinine 0.8 Est GFR ( Amer) > 60 Est GFR (Non-Af Amer) > 60 Random Glucose 110 Calcium 8.9 Phosphorus 4.6 H Magnesium 2.2 Total Bilirubin 0.3 AST 26 ALT 37 Alkaline Phosphatase 82 Lactate Dehydrogenase 378 382 Total Creatine Kinase 92 92 Troponin I < 0.01 < 0.01 NT-Pro-B Natriuret Pep Total Protein 7.9 Albumin 3.9 Globulin 3.9 Albumin/Globulin Ratio 1.0 L Triglycerides 164 H Cholesterol 166 LDL Cholesterol Direct 109 HDL Cholesterol 32 TSH 3rd Generation Urine Color Urine Appearance Urine pH Ur Specific Sun Urine Protein Urine Glucose (UA) Urine Ketones Urine Blood Urine Nitrate Urine Bilirubin Urine Urobilinogen Ur Leukocyte Esterase Urine Opiates Screen Urine Methadone Screen Ur Barbiturates Screen Ur Phencyclidine Scrn Ur Amphetamines Screen U Benzodiazepines Scrn U Oth Cocaine Metabols U Cannabinoids Screen Alcohol, Quantitative 08/03/18 12:15 WBC RBC Hgb Hct MCV MCH MCHC RDW Plt Count MPV Gran % Lymph % (Auto) [place] % (Auto) Eos % (Auto) Baso % (Auto) Gran # Lymph # (Auto) [place] # (Auto) Eos # (Auto) Baso # (Auto) APTT D-Dimer, Quantitative < 200 Sodium Potassium Chloride Carbon Dioxide Anion Gap BUN Creatinine Est GFR ( Amer) Est GFR (Non-Af Amer) Random Glucose Calcium Phosphorus Magnesium Total Bilirubin AST ALT Alkaline Phosphatase Lactate Dehydrogenase Total Creatine Kinase Troponin I NT-Pro-B Natriuret Pep Total Protein Albumin Globulin Albumin/Globulin Ratio Triglycerides Cholesterol LDL Cholesterol Direct HDL Cholesterol TSH 3rd Generation Urine Color Urine Appearance Urine pH Ur Specific Sun Urine Protein Urine Glucose (UA) Urine Ketones Urine Blood Urine Nitrate Urine Bilirubin Urine Urobilinogen Ur Leukocyte Esterase Urine Opiates Screen Urine Methadone Screen Ur Barbiturates Screen Ur Phencyclidine Scrn Ur Amphetamines Screen U Benzodiazepines Scrn U Oth Cocaine Metabols U Cannabinoids Screen Alcohol, Quantitative Assessment & Plan - Assessment and Plan (Free Text) Assessment: Morbidly obese patient with hx of stable HTN on amlodipine and diltiazem...presents with AFIB RVR...He has been seen by us in office since 05/2016 and office EKGs always showed NSR, Holter 2017 also showed NSR.. > Prior w/u as outpatient suggests: Normal LVEF, mild-mod LAE, Grade 2 DD (2017) Normal stress test PHARM/NUC 2015 Thus: likely new onset AFIB, precipitated by underlying obsesity and possible sleep apnea. His CHADSVAsc score is 1 and it is BDLN indication for DOAC Plan: rate control with CCB and add toprol XL 50 daily Eliquis 5 BID if no bleeding concerns and patient is agreeable, otherwise ASA 325 daily. Weight loss, RX for possible LETHA
[2018-08-04 00:12] VITALS: O2SAT 97
[2018-08-04 06:45] LABS: ALT/SGPT 32 U/L (7-56); AST/SGOT 30 U/L (17-59); BLOOD UREA NITROGEN 14 mg/dL (7-21); CALCIUM 8.8 mg/dL (8.4-10.5); GFR NON-AFRICAN AMERICAN > 60
[2018-08-04 06:54] LABS: BASO # 0.05 K/mm3 (0.0-2.0); BASO % 0.7 % (0.0-3.0); EOS # 0.3 (0.0-0.7); EOS % 5.1 % (1.5-5.0); GRAN # 3.96 (1.4-6.5); GRAN % 58.9 % (50.0-68.0); HEMOGLOBIN 13.3 g/dL (14.0-18.0); LYMPH % 29.4 % (22.0-35.0); MEAN CELL VOLUME 88.9 fl (80.0-105.0); MEAN CORPUSCULAR HEMOGLOBIN 29.4 pg (25.0-35.0); MEAN CORPUSCULAR HGB CONC 33.1 g/dl (31.0-37.0); MEAN PLATELET VOLUME 10.2 fl (7.0-11.0); MONO # 0.4 (0.1-0.6); MONO % 5.9 % (1.0-6.0); RBC 4.52 10^6/uL (3.5-6.1); WHITE BLOOD COUNT 6.7 10^3/uL (4.5-11.0)
--- NOTE | 2018-08-04 07:52 | CP.PCM.DIS ---
Provider - Provider Date of Admission: 08/02/18 16:46 Attending physician: Micaela Ibrahim MD Time Spent in preparation of Discharge (in minutes): 40 Hospital Course - Lab Results Lab Results: Most Recent Lab Values WBC 6.7 10^3/uL (4.5-11.0) 08/04/18 06:00 RBC 4.52 10^6/uL (3.5-6.1) 08/04/18 06:00 Hgb 13.3 g/dL (14.0-18.0) L 08/04/18 06:00 Hct 40.2 % (42.0-52.0) L 08/04/18 06:00 MCV 88.9 fl (80.0-105.0) 08/04/18 06:00 MCH 29.4 pg (25.0-35.0) 08/04/18 06:00 MCHC 33.1 g/dl (31.0-37.0) 08/04/18 06:00 RDW 14.0 % (11.5-14.5) 08/04/18 06:00 Plt Count 268 10^3/uL (120.0-450.0) 08/04/18 06:00 MPV 10.2 fl (7.0-11.0) 08/04/18 06:00 Gran % 58.9 % (50.0-68.0) 08/04/18 06:00 Lymph % (Auto) 29.4 % (22.0-35.0) 08/04/18 06:00 [place] % (Auto) 5.9 % (1.0-6.0) 08/04/18 06:00 Eos % (Auto) 5.1 % (1.5-5.0) H 08/04/18 06:00 Baso % (Auto) 0.7 % (0.0-3.0) 08/04/18 06:00 Gran # 3.96 (1.4-6.5) 08/04/18 06:00 Lymph # (Auto) 2.0 (1.2-3.4) 08/04/18 06:00 [place] # (Auto) 0.4 (0.1-0.6) 08/04/18 06:00 Eos # (Auto) 0.3 (0.0-0.7) 08/04/18 06:00 Baso # (Auto) 0.05 K/mm3 (0.0-2.0) 08/04/18 06:00 APTT 30.8 Seconds (25.1-36.5) 08/02/18 15:00 D-Dimer, Quantitative < 200 ng/mlDDU (0-243) 08/03/18 12:15 Sodium 139 mmol/L (132-148) 08/04/18 06:00 Potassium 4.1 mmol/L (3.6-5.0) 08/04/18 06:00 Chloride 100 mmol/L (98-107) 08/04/18 06:00 Carbon Dioxide 32 mmol/L (21-33) 08/04/18 06:00 Anion Gap 11 (10-20) 08/04/18 06:00 BUN 14 mg/dL (7-21) 08/04/18 06:00 Creatinine 0.8 mg/dl (0.8-1.5) 08/04/18 06:00 Est GFR ( Amer) > 60 08/04/18 06:00 Est GFR (Non-Af Amer) > 60 08/04/18 06:00 Random Glucose 101 mg/dL (70-110) 08/04/18 06:00 Calcium 8.8 mg/dL (8.4-10.5) 08/04/18 06:00 Phosphorus 4.6 mg/dL (2.5-4.5) H 08/03/18 06:00 Magnesium 2.2 mg/dL (1.7-2.2) 08/03/18 06:00 Total Bilirubin 0.5 mg/dL (0.2-1.3) 08/04/18 06:00 AST 30 U/L (17-59) 08/04/18 06:00 ALT 32 U/L (7-56) 08/04/18 06:00 Alkaline Phosphatase 74 U/L (38-126) 08/04/18 06:00 Lactate Dehydrogenase 382 U/L (333-699) 08/03/18 06:00 Total Creatine Kinase 92 U/L (35-230) 08/03/18 06:00 Troponin I < 0.01 ng/mL 08/03/18 06:00 NT-Pro-B Natriuret Pep 107 pg/mL (0-450) 08/02/18 15:00 Total Protein 7.9 g/dL (5.8-8.3) 08/04/18 06:00 Albumin 4.0 g/dL (3.0-4.8) 08/04/18 06:00 Globulin 3.9 gm/dL 08/04/18 06:00 Albumin/Globulin Ratio 1.0 (1.1-1.8) L 08/04/18 06:00 Triglycerides 164 mg/dL (35-160) H 08/03/18 06:00 Cholesterol 166 mg/dL (130-200) 08/03/18 06:00 LDL Cholesterol Direct 109 mg/dL (0-129) 08/03/18 06:00 HDL Cholesterol 32 mg/dL (29-60) 08/03/18 06:00 TSH 3rd Generation 1.52 mIU/mL (0.46-4.68) 08/02/18 15:00 Urine Color Yellow (YELLOW) 08/02/18 16:39 Urine Appearance Clear (CLEAR) 08/02/18 16:39 Urine pH 6.5 (4.7-8.0) 08/02/18 16:39 Ur Specific [place] <= 1.005 (1.005-1.035) 08/02/18 16:39 Urine Protein Negative mg/dL (<30 mg/dL) 08/02/18 16:39 Urine Glucose (UA) Negative mg/dL (NEGATIVE) 08/02/18 16:39 Urine Ketones Negative mg/dL (NEGATIVE) 08/02/18 16:39 Urine Blood Negative (NEGATIVE) 08/02/18 16:39 Urine Nitrate Negative (NEGATIVE) 08/02/18 16:39 Urine Bilirubin Negative (NEGATIVE) 08/02/18 16:39 Urine Urobilinogen 0.2 E.U./dL (<1 E.U./dL) 08/02/18 16:39 Ur Leukocyte Esterase Negative [place]/uL (NEGATIVE) 08/02/18 16:39 Urine Opiates Screen Negative (NEGATIVE) 08/02/18 20:22 Urine Methadone Screen Negative (NEGATIVE) 08/02/18 20:22 Ur Barbiturates Screen Negative (NEGATIVE) 08/02/18 20:22 Ur Phencyclidine Scrn Negative (NEGATIVE) 08/02/18 20:22 Ur Amphetamines Screen Negative (NEGATIVE) 08/02/18 20:22 U Benzodiazepines Scrn Negative (NEGATIVE) 08/02/18 20:22 U Oth Cocaine Metabols Negative (NEGATIVE) 08/02/18 20:22 U Cannabinoids Screen Negative (NEGATIVE) 08/02/18 20:22 Alcohol, Quantitative < 10 mg/dL (0-10) 08/02/18 15:00 - Hospital Course Hospital Course: HPI: Patient is a 53-year-old male with a past history of atrial fibrillation(on Cardizem) presenting to the Emergency Room with complaint of palpitations. The patient states he had felt unwell with chest tightness and dyspnea on exertion for the last couple of days, but felt dyspneic at rest the day of admission with associated palpitations. The patient denies fevers, chills, nausea, emesis, abdominal pain, but reports intermittent dizziness and pre-syncopal episodes. During the course of hospitalization: Patient spontaneously converted to normal sinus rhythm status post cardizem drip in the ED. Serial troponins were within normal limits. EKG demonstrated atrial fibrillation with rapid ventricular response at a rate of 132 beats per minute, with repeat EKG at 106 beats per minute. Echocardiogram done in November 2017 demonstrated ejection fraction of 63%. He was transferred to the medical floors and monitored on telemetry. Patient's home cardizem regimen was started, norvasc was held. Cardiology was consulted (Dr. Engel), who diagnosed likely new onset atrial fibrillation precipitated by underlying obesity, possibly obstructive sleep apnea. Per discussions between Cardiology and primary care team (Dr. Ibrahim) patient was discharged home on cardizem 180 mg PO once daily and placed on Eliquis 5 mg PO twice daily. Patient was made aware of risks of bleeding, given his history of lower GI bleed and informed to stop medication if he notes dark colored stools or active bleeding and notify cardiology. Patient was also placed on metoprolol 25 mg PO twice daily. Patient is medically stable for discharge to home, as per Dr. Ibrahim. Patient is instructed to take all medications as prescribed. Please follow up with your primary care physician within 1 week of discharge for continued care and management. Please note, per Cardiology recommendations, patient is instructed to take Eliquis for anticoagulation as prescribed. Script has been provided: Eliquis 5 mg PO twice daily Patient has been instructed by paint sprayer sandblaster to stop taking Eliquis if there are any signs of dark colored stool or active bleeding and to notify paint sprayer sandblaster. Please follow up with your paint sprayer sandblaster within 1 week of discharge for continued monitoring and management of atrial fibrillation. Please follow up with your primary care provider or paint sprayer sandblaster regarding coordination of outpatient sleep study. The following is a summary of hospital course. For further detail, please refer to EMR. - Date & Time of H&P Date of H&P: 08/04/18 Time of H&P: 14:34 Discharge Exam - Head Exam Head Exam: ATRAUMATIC, NORMAL INSPECTION, NORMOCEPHALIC - Eye Exam Eye Exam: EOMI, Normal appearance Pupil Exam: NORMAL ACCOMODATION - ENT Exam ENT Exam: Mucous Membranes Moist, Normal Exam - Neck Exam Neck exam: Full Rom, Normal Inspection - Respiratory Exam Respiratory Exam: Clear to PA & Lateral, NORMAL BREATHING PATTERN, UNREMARKABLE. absent: Accessory Muscle Use, Rales, Rhonchi, Wheezes, Respiratory Distress, Stridor - Cardiovascular Exam Cardiovascular Exam: REGULAR RHYTHM, +S1, +S2 - GI/Abdominal Exam GI & Abdominal Exam: Normal Bowel Sounds, Soft, Unremarkable. absent: Distended, Firm, Guarding, Hernia, Rebound, Rigid, Tenderness - Extremities Exam Extremities exam: normal capillary refill, normal inspection, pedal pulses present - Back Exam Back exam: NORMAL INSPECTION - Neurological Exam Neurological exam: Alert, CN II-XII Intact, Normal Gait, Oriented x3 - Psychiatric Exam Psychiatric exam: Normal Affect, Normal Mood - Skin Skin Exam: Dry, Intact, Normal Color, Warm Discharge Plan - Discharge Medications Prescriptions: Apixaban [Eliquis] 5 mg PO BID #60 tablet [id number] CD [Cardizem CD] 180 mg PO DAILY #30 c24 Metoprolol Succinate XL [Toprol XL] 25 mg PO BID #60 tab - Follow Up Plan Condition: GUARDED Disposition: HOME/ ROUTINE Instructions: Atrial Fibrillation, Shortness of Breath (Dyspnea) (DC), Chest Pain (DC) Additional Instructions: Patient is medically stable for discharge to home, as per Dr. Ibrahim. Patient is instructed to take all medications as prescribed. Please follow up with your primary care physician within 1 week of discharge for continued care and management. Please note, per Cardiology recommendations, patient is instructed to take Eliquis for anticoagulation as prescribed. Script has been provided: Eliquis 5 mg PO twice daily Patient has been instructed by paint sprayer sandblaster to stop taking Eliquis if there are any signs of dark colored stool or active bleeding and to notify paint sprayer sandblaster. Please follow up with your paint sprayer sandblaster within 1 week of discharge for continued monitoring and management of atrial fibrillation. Please follow up with your [facility] care provider or paint sprayer sandblaster regarding coordination of outpatient sleep study. If symptoms worsen, please return to ED for further immediate care. Referrals: Amanda Rosenberg DO [[facility]] -
[2018-08-04] MEDS: Pantoprazole 40 mg EC Tab PO SCH (09:09)
[2018-08-04 12:12] VITALS: BP 148/84; RESP 20; TEMP 98.4
[2018-08-04 14:20] VITALS: PULSE 55
== END 2018-08-04 14:31 | disposition home or self-care (01) | DRG 201 ==
LOC: ED 14:24 → ERH 16:46 → 2RNO 20:30
PROVIDERS: ADMIT Hospitalist; ATTEND Internal Medicine
DX: I48.0 Paroxysmal atrial fibrillation (principal); Z68.43 Body mass index [BMI] 50.0-59.9, adult; I10 Essential (primary) hypertension; E66.01 Morbid (severe) obesity due to excess calories; K21.9 Gastro-esophageal reflux disease without esophagitis; K27.9 Peptic ulcer, site unspecified, unspecified as acute or chronic, without hemorrhage or perforation; E78.5 Hyperlipidemia, unspecified; G47.30 Sleep apnea, unspecified; Z87.891 Personal history of nicotine dependence